=== PATIENT | male | born 1950 | race Caucasian/White ===

== ENCOUNTER → 2017-08-11 10:37 | Outpatient (CLI) | payer MEDICARE, SELFPAY ==
[2017-08-11 11:20] LABS: Bacteria 0 SEEN /hpf (None Seen); Mucous, Urine 0 SEEN /hpf (<or=2+); Red Blood Cells-Urine 0 SEEN /hpf (0-5); Squamous Epithelial Cells - UA 0 SEEN /hpf (0-5); White Blood Cells 0 SEEN /hpf (0-5)
[2017-08-11 11:30] LABS: Color, Urine Yellow (Yellow); Glucose, Dipstick Normal (Normal); Ketone-Dipstick Negative (Negative); Leukocyte Esterase-Dipstick Negative /ul (Negative); Nitrite-Dipstick Negative (Negative); Occult Blood-Urine Negative /ul (Negative); Protein-Dipstick Negative (Negative); Urine Bilirubin Dipstick Negative (Negative); Urine Clarity Clear (Clear); Urine Urobilinogen Normal (Normal)
[2017-08-11 11:32] LABS: Absolute Lymphocyte Count 1.61 X10^3/ul (0.83-4.51); Absolute Neutrophil Count 2.9 X10^3/uL (2.0-7.7); Basophil# 0.04 X10^3/uL; Basophil% 0.8 % (0-1); Eosinophil# 0.14 X10^3/uL; Eosinophils% 2.7 % (0-5); Hematocrit 35.7 % (40-54); Hemoglobin 10.8 g/dl (13.0-16.5); Lymphocyte # 1.61 X10^3/ul (4.0); Lymphocyte % 30.8 % (19-41); Mean Corp Hgb Conc 30.3 g/gl (32-36); Mean Corpuscular Volume 79.3 fL (80-94); Mean Platelet Vol. 10.3 fl (6.2-12.0); Monocyte# 0.54 X10^3/uL; Monocyte% 10.3 % (0-10); Neutrophil # 2.88 X10^3/uL (2.7-7.7); Neutrophil % 55.2 % (47-70); Platelet Count 292 K/mm3 (150-450); RBC Distribution Width CV 13.5 % (11.6-14.6); RBC Distribution Width SD 38.3 fl (35.1-43.9); White Blood Count 5.2 K/mm3 (4.4-11.0)
[2017-08-11 11:36] LABS: POSITIVE COUNT NO; POSITIVE DIFFERENTIAL NO; POSITIVE MORPHOLOGY NO
[2017-08-11 11:42] LABS: ALB/GLOB Ratio 1.1 RATIO (0.9-2.4); AST(SGOT) 22 U/L (15-37); Alanine Aminotransfer ALT/SGPT 25 U/L (16-61); Albumin, Serum 3.8 g/dL (3.2-5.0); Alkaline Phosphatase 68 U/L (45-117); Anion Gap 5 (5-15); BUN 15 mg/dL (7-18); BUN/Creat Ratio 17.8 RATIO (10-20); Calcium,Total 8.7 mg/dL (8.5-10.1); Chloride 107 mmol/L (98-107); Cholesterol 186 mg/dL (200); Creatinine, Serum 0.84 mg/dL (0.70-1.30); EST Glomerular Filtration Rate 97 mL/min (>60); Est Glom Filt Rate - Afr Amer 117 mL/min (>60); Globulin 3.6 g/dL (2.2-4.2); Glucose 91 mg/dL (74-106); High Density Lipoprotein 39 mg/dL; Iron 31 ug/dL (65-175); Iron Binding Capacity,Total 419 ug/dL (250-450); Potassium 3.9 mmol/L (3.5-5.1); Protein, Total 7.4 g/dL (6.4-8.2); Sodium Level 140 mmol/L (136-145); Triglycerides 136 mg/dL; Very Low Density Lipoprotein 27 mg/dL (5-40)
[2017-08-11 11:47] LABS: Vitamin B12 356 pg/mL (211-911)
[2017-08-11 11:53] LABS: Homocysteine 12.1 umol/L (3.2-10.7)
== END ==
PROVIDERS: Family Provider Family Medicine; PCP Family Medicine; Visit Provider Family Medicine
DX: D50.9 Iron deficiency anemia, unspecified (principal); E53.8 Deficiency of other specified B group vitamins; E72.11 Homocystinuria; I10 Essential (primary) hypertension
CPT/HCPCS: 80053; 80061; 81001; 82607; 83090; 83540; 83550; 85025

== ENCOUNTER 2017-09-13 11:23 | Emergency (ER) | payer MEDICARE, SELFPAY ==
[2017-09-13 11:24] VITALS: BP 206/106; PULSE 74; RESP 16; TEMP 36.6; O2SAT 98; BMI 26.9
--- NOTE | 2017-09-13 11:37 | EKG12_ITS ---
Test Reason : Blood Pressure : / mmHG Vent. Rate : 093 BPM Atrial Rate : 093 BPM P-R Int : 174 ms QRS Dur : 088 ms QT Int : 344 ms P-R-T Axes : 041 -02 039 degrees QTc Int : 427 ms Sinus rhythm with frequent and consecutive Premature ventricular complexes Abnormal ECG Confirmed by JESSICA RODRIGUEZ, JEANETTE ([id number]), industrial editor NORMAN WOLF ([id number]) on 09/15/2017 9:06:39 AM Referred By: SUSANA Confirmed By:JEANETTE LOPEZ MD
--- NOTE | 2017-09-13 11:40 | EKG12_ITS ---
Test Reason : Blood Pressure : / mmHG Vent. Rate : 104 BPM Atrial Rate : 104 BPM P-R Int : 176 ms QRS Dur : 084 ms QT Int : 338 ms P-R-T Axes : 030 -03 033 degrees QTc Int : 444 ms Sinus tachycardia with frequent and consecutive Premature ventricular complexes Abnormal ECG Confirmed by JESSICA RODRIGUEZ, JEANETTE ([id number]), rewrite editor NORMAN WOLF ([id number]) on 09/15/2017 9:06:53 AM Referred By: SUSANA Confirmed By:JEANETTE LOPEZ MD
[2017-09-13 12:09] LABS: Absolute Lymphocyte Count 1.76 X10^3/ul (0.83-4.51); Absolute Neutrophil Count 3.1 X10^3/uL (2.0-7.7); Basophil# 0.05 X10^3/uL; Basophil% 0.9 % (0-1); Eosinophil# 0.12 X10^3/uL; Eosinophils% 2.1 % (0-5); Hematocrit 39.7 % (40-54); Hemoglobin 12.7 g/dl (13.0-16.5); Lymphocyte # 1.76 X10^3/ul (4.0); Lymphocyte % 30.8 % (19-41); Mean Corpuscular Hgb 25.6 pg (27.0-32.0); Mean Platelet Vol. 10.3 fl (6.2-12.0); Monocyte# 0.71 X10^3/uL; Monocyte% 12.4 % (0-10); Neutrophil # 3.05 X10^3/uL (2.7-7.7); Neutrophil % 53.4 % (47-70); Platelet Count 236 K/mm3 (150-450); RBC Distribution Width CV 16.6 % (11.6-14.6); RBC Distribution Width SD 47.3 fl (35.1-43.9); Red Blood Count 4.96 M/mm3 (4.6-6.2); White Blood Count 5.7 K/mm3 (4.4-11.0)
--- NOTE | 2017-09-13 12:09 | RAD_ITS ---
STUDY: X-RAY CHEST REASON FOR EXAM: Male, 67 years old. Hypertension TECHNIQUE: 2 AP portable views COMPARISON: None. FINDINGS: EKG leads overlie the chest The lungs are clear and expanded. There is no demonstrated pleural abnormality. Normal size heart. Normal mediastinum and severiano. Normal visualized pulmonary arteries. Normal visualized aortic arch and descending thoracic aorta. Normal visualized thoracic spine. Normal visualized ribs, clavicles, and shoulders. There is no demonstrated abnormality of the visualized soft tissue structures of the upper abdomen. RAD/Chest 1 View (Portable) IMPRESSION: Normal x-ray examination of the chest. Electronically Signed: Flavio Wiggins MD at 12:27 EDT , Service support ,
[2017-09-13 12:21] LABS: POSITIVE COUNT NO; POSITIVE DIFFERENTIAL NO; POSITIVE MORPHOLOGY NO
[2017-09-13 12:24] LABS: Anion Gap 5 (5-15); BUN 20 mg/dL (7-18); BUN/Creat Ratio 21.1 RATIO (10-20); Chloride 108 mmol/L (98-107); Creatinine, Serum 0.95 mg/dL (0.70-1.30); EST Glomerular Filtration Rate 84 mL/min (>60); Est Glom Filt Rate - Afr Amer 102 mL/min (>60); Estimated Creatinine Clearance 77.91 ml/min; Glucose 94 mg/dL (74-106); Sodium Level 141 mmol/L (136-145)
[2017-09-13 12:50] VITALS: BP 170/98; PULSE 85; RESP 15; O2SAT 95
--- NOTE | 2017-09-13 12:52 | ED.DCSUM_ITS ---
- ER Visit Summary Date of Service: 09/13/17 Chief Complaint: [High blood pressure] History of Present Illness: The patient is a 67 M [presents to the emergency department complaint of high blood pressure that started this morning. Patient had a nosebleed last night that he had a hard time stopping so this morning he went to urgent care where they noticed his blood pressure was high. Patient denies chest pain or shortness of breath. Patient denies headache. Patient states that normally his blood pressure is in the 130 systolic. Patient is on Xarelto for history of DVT and he does have a history of hypertension.] Physical Examination: [HEENT-PERRLA, EOMI. Cranial nerves II through XII grossly intact. TMs clear. Mucous membranes moist. No adenopathy. Patient does have a small vessel on the right anterior septum that clotted with no active bleeding at this time. Cardiovascular-regular rate and rhythm without murmur. Patient has frequent ectopy noted. Lungs-clear to auscultation, chest wall stable without crepitus or subcu emphysema Abdomen-normoactive bowel sounds, soft, nontender, no rebound or rigidity, no peritoneal signs. Extremities-intact ?4, normal range of motion, normal pulses, atraumatic] Test Results: [EKG obtained on arrival showed normal sinus rhythm with bigeminy. Patient did have one run of V. tach 4 beats nonsustained and asymptomatic. CBC with differential unremarkable. Chemistries unremarkable. Troponin was less than 0.02.] Emergency Department Course and Treatment: Without treatment his blood pressure improved into the 160 systolic. [] Treatment Plan: [Patient case was just with Dr. Santhosh Collins was on for cardiology. I had concern about the patient's nonsustained V. tach. I was asked to place patient on a 24-hour Holter monitor and put patient on Toprol-XL as well as increase lisinopril to 40 mg daily. Patient to follow-up with Dr. Collins in the office.] Disposition: [Discharged home in stable condition] Impression: [Hypertension PVCs Nonsustained V. tach] This note was generated with [employer] dictation software. It may contain incorrect words, spelling, and punctuation that were not noted in review of the chart prior to signing ED Disposition - Plan for ED Patient: Chief Complaint: Hypertension Referrals: Chavez Martinez MD [Primary Care Provider] -
--- NOTE | 2017-09-13 12:52 | ED.DEP ---
ED Disposition - Plan for ED Patient: Chief Complaint: Hypertension Instructions: ED HTN Established, Premature Ventricular Contractions, ED Nosebleed Prescriptions: Lisinopril [Zestril] 40 mg PO DAILY #30 tab Metoprolol Succinate [Toprol Xl] 50 mg PO DAILY #30 tab.er.24h Referrals: Chavez Martinez MD [Primary Care Provider] - Santhosh Collins MD [STAFF PHYSICIAN] - 3-5 Days
[2017-09-13 13:14] VITALS: BP 159/101; PULSE 85; RESP 20; O2SAT 98
== END 2017-09-13 13:26 | disposition home or self-care (01) ==
LOC: ED 12:51
PROVIDERS: Emergency Provider Emergency Medicine; Family Provider Family Medicine; PCP Family Medicine
DX: I10 Essential (primary) hypertension (principal); I49.3 Ventricular premature depolarization; Z86.718 Personal history of other venous thrombosis and embolism
CPT/HCPCS: 71045; 80048; 84484; 85025; 93005; 99284

== ENCOUNTER → 2017-09-13 14:48 | Outpatient (CLI) | payer MEDICARE, SELFPAY | PROVIDERS: Family Provider Family Medicine; PCP Family Medicine; Visit Provider Emergency Medicine | DX: I49.3 Ventricular premature depolarization (principal) | CPT/HCPCS: 71045; 80048; 84484; 85025; 93005; 93225; 93226; 99284 ==

== ENCOUNTER → 2017-10-27 16:17 | Outpatient (CLI) | payer MEDICARE, SELFPAY ==
[2017-10-27 17:03] LABS: Magnesium 2.2 mg/dL (1.6-2.6)
== END ==
PROVIDERS: Family Provider Family Medicine; PCP Family Medicine; Visit Provider Internal Medicine Cardiovascular Disease
DX: I49.9 Cardiac arrhythmia, unspecified (principal); I10 Essential (primary) hypertension; R94.31 Abnormal electrocardiogram [ECG] [EKG]
CPT/HCPCS: 83735; 84443

== ENCOUNTER → 2017-11-23 15:32 | Outpatient (CLI) | payer MEDICARE, SELFPAY ==
[2017-11-23 15:45] LABS: Absolute Lymphocyte Count 1.33 X10^3/ul (0.83-4.51); Basophil# 0.07 X10^3/uL; Basophil% 1.4 % (0-1); Eosinophil# 0.12 X10^3/uL; Eosinophils% 2.4 % (0-5); Hematocrit 40.1 % (40-54); Lymphocyte # 1.33 X10^3/ul (4.0); Lymphocyte % 26.3 % (19-41); Mean Corp Hgb Conc 32.4 g/gl (32-36); Mean Corpuscular Hgb 26.8 pg (27.0-32.0); Mean Corpuscular Volume 82.7 fL (80-94); Mean Platelet Vol. 9.7 fl (6.2-12.0); Monocyte# 0.54 X10^3/uL; Monocyte% 10.7 % (0-10); Neutrophil # 2.98 X10^3/uL (2.7-7.7); Platelet Count 245 K/mm3 (150-450); Red Blood Count 4.85 M/mm3 (4.6-6.2); White Blood Count 5.1 K/mm3 (4.4-11.0)
[2017-11-23 15:48] LABS: POSITIVE COUNT NO; POSITIVE DIFFERENTIAL NO; POSITIVE MORPHOLOGY NO
[2017-11-23 15:58] LABS: International Normalized Ratio 1.1; Prothrombin Time (Protime)PT. 14.4 SECONDS (11.7-14.9)
[2017-11-23 16:14] LABS: Anion Gap 9 (5-15); BUN 17 mg/dL (7-18); BUN/Creat Ratio 19.8 RATIO (10-20); Calcium,Total 8.6 mg/dL (8.5-10.1); Chloride 107 mmol/L (98-107); Creatinine, Serum 0.86 mg/dL (0.70-1.30); EST Glomerular Filtration Rate 94 mL/min (>60); Est Glom Filt Rate - Afr Amer 114 mL/min (>60); Glucose 101 mg/dL (74-106); Iron 56 ug/dL (65-175); Iron Binding Capacity,Total 366 ug/dL (250-450); Potassium 3.7 mmol/L (3.5-5.1); Sodium Level 143 mmol/L (136-145)
[2017-11-24 08:28] LABS: Vitamin B12 320 pg/mL (211-911)
== END ==
PROVIDERS: Visit Provider Internal Medicine Cardiovascular Disease
DX: I25.10 Atherosclerotic heart disease of native coronary artery without angina pectoris (principal); I49.9 Cardiac arrhythmia, unspecified; D50.9 Iron deficiency anemia, unspecified; E53.8 Deficiency of other specified B group vitamins
CPT/HCPCS: 80048; 82607; 83540; 83550; 85025; 85610

== ENCOUNTER → 2017-12-27 07:35 | Outpatient (CLI) | payer MEDICARE, SELFPAY ==
[2017-12-27 07:54] LABS: Hematocrit 35.7 % (40-54); Hemoglobin 11.2 g/dl (13.0-16.5); Mean Corp Hgb Conc 31.4 g/gl (32-36); Mean Corpuscular Hgb 26.3 pg (27.0-32.0); Mean Corpuscular Volume 83.8 fL (80-94); Mean Platelet Vol. 9.2 fl (6.2-12.0); Platelet Count 261 K/mm3 (150-450); RBC Distribution Width CV 13.6 % (11.6-14.6); RBC Distribution Width SD 40.7 fl (35.1-43.9); Red Blood Count 4.26 M/mm3 (4.6-6.2); Scan Indicated on CBC? Y/N NO; White Blood Count 5.7 K/mm3 (4.4-11.0)
[2017-12-27 08:20] LABS: Anion Gap 12 (5-15); BUN 16 mg/dL (7-18); Calcium,Total 8.8 mg/dL (8.5-10.1); Chloride 105 mmol/L (98-107); Cholesterol 106 mg/dL (200); Creatinine, Serum 0.84 mg/dL (0.70-1.30); EST Glomerular Filtration Rate 96 mL/min (>60); Est Glom Filt Rate - Afr Amer 117 mL/min (>60); Glucose 104 mg/dL (74-106); High Density Lipoprotein 42 mg/dL; Potassium 4.1 mmol/L (3.5-5.1); Sodium Level 143 mmol/L (136-145); Triglycerides 107 mg/dL; Very Low Density Lipoprotein 21 mg/dL (5-40)
== END ==
PROVIDERS: Family Provider Family Medicine; PCP Family Medicine
DX: I25.10 Atherosclerotic heart disease of native coronary artery without angina pectoris (principal)
CPT/HCPCS: 36415; 80048; 80061; 85027

== ENCOUNTER → 2018-02-17 11:01 | Outpatient (CLI) | payer MEDICARE, SELFPAY ==
[2018-02-17 11:31] LABS: Absolute Lymphocyte Count 1.57 X10^3/ul (0.83-4.51); Basophil% 1.3 % (0-1); Eosinophil# 0.46 X10^3/uL; Eosinophils% 5.8 % (0-5); Hematocrit 38.6 % (40-54); Lymphocyte # 1.57 X10^3/ul (4.0); Lymphocyte % 19.7 % (19-41); Mean Corp Hgb Conc 31.1 g/gl (32-36); Mean Corpuscular Hgb 25.9 pg (27.0-32.0); Mean Corpuscular Volume 83.4 fL (80-94); Mean Platelet Vol. 10.4 fl (6.2-12.0); Monocyte# 0.83 X10^3/uL; Monocyte% 10.4 % (0-10); Neutrophil # 4.96 X10^3/uL (2.7-7.7); Neutrophil % 62.3 % (47-70); Platelet Count 319 K/mm3 (150-450); RBC Distribution Width CV 13.4 % (11.6-14.6); RBC Distribution Width SD 40.2 fl (35.1-43.9); Red Blood Count 4.63 M/mm3 (4.6-6.2)
[2018-02-17 11:33] LABS: POSITIVE COUNT NO; POSITIVE DIFFERENTIAL NO; POSITIVE MORPHOLOGY NO
[2018-02-17 11:39] LABS: Cholesterol 101 mg/dL (200); High Density Lipoprotein 34 mg/dL; Iron 43 ug/dL (65-175); Iron Binding Capacity,Total 317 ug/dL (250-450); PSA,Total- Diagnostic 2.62 ng/mL (0.0-4.0); Triglycerides 103 mg/dL; Very Low Density Lipoprotein 21 mg/dL (5-40)
== END ==
PROVIDERS: Family Provider Family Medicine; PCP Family Medicine; Referring Provider Family Medicine; Visit Provider Family Medicine
DX: D50.9 Iron deficiency anemia, unspecified (principal); N42.9 Disorder of prostate, unspecified; I10 Essential (primary) hypertension; E72.11 Homocystinuria
CPT/HCPCS: 80061; 83540; 83550; 84153; 85025

== ENCOUNTER → 2018-02-24 07:56 | Outpatient (CLI) | payer MEDICARE, SELFPAY ==
--- NOTE | 2018-02-24 08:10 | PCM.CR.ITP ---
General Information - General Information Admitting Diagnosis: PCI with stent 12/22/17 - Education/Goals Barriers to Learning: None Individual Counseling: Initial Assessment: Abnormal Cholesterol Levels, High Blood Pressure, Overweight/Obesity, Hypertension, Stress, Family History of Heart Disease (under 65 years) - mom and dad Cardiac Rehabilitation Goals: 1. Maintain the individual as the primary focus of care. 2. To improve the patient's quality of life. 3. Identification of cardiac risk factors and provide cardiac risk factor management. 4. Enhance the psychosocial status of the patient. 5. Reconditioning enough to allow the patient to resume customary activities. 6. Control symptoms of cardiac disease Scale for measuring improvement of personal goals: Enter appropriate number in Comments. 2 = Unchanged. 3 = Slightly Better. 4 = Moderate Improvement. 5 = Met my Goal Personal Goals: Initial Assessment: Improve management of stress and emotions, Improve energy level, Participate in home exercise program, Get back to work, or to resume activities faster, Improve muscle strength and endurance, Improve diet and eating habits (eat healthier), Control risk factors (learn risk factor modification) Exercise - Initial Assessment - Visit Date of Eval: 02/24/18 - Stages of Change Stages of Change:: Action - Exercise Prescription Mode:: Treadmill, Biodyne, Rower, Airdyne, NuStep - Hypertension Do any of the following apply?: Yes Resting Blood Pressure:: 140/72 - Intervention Home Exercise/Activity Goal:: Moderate Exercise 30 min/day x 5 days/wk - Education Goals:: Warm-up, RPE MANPREET Scale, S/S, Safe Exercise, Self-Monitoring Nutrition - Initial Assessment - Program Goals Nutrition Program Goals: LDL <70. Total Cholesterol <200. HDL >45. Triglycerides <150. HgbA1C <7%. BMI <25 - Visit Date of Assessment:: 02/24/18 - Stages of Change Stages of Change:: Action - Diabetes Diabetes:: No - Weight Management Height: 1.78 m Weight:: 81.647 kg Weight Goal (kg):: 79.379 kg Body Fat %:: 25 - Intervention Referral to dietitian:: No Referral to Diabetic Clinic:: No Will attend diet classes:: Yes - Education Gave educational materials for:: Healthy eating Tobacco - Initial Assessment - Program Goals Tobacco Program Goals: Complete smoking cessation. Attend education classes. Improve Knowledge Test score - Stage of Change Stages of Change:: Maintenance - Learning Barriers Learning Barriers: Ready to Learn Total Score:: 14 - Family Support Do you have family support?: Yes - Tobacco Use Tobacco Use: Non-smoker Do you use smokeless tobacco?: No - Intervention Smoking Cessation Referral:: No Individual Education/Counseling:: No Education Schedule Given:: Yes - Education Gave educational material for:: Coronary artery disease, Risk factors, Sexuality, Medical compliance, Cardiac A&P, Angina signs & symptoms Psychosocial - Initial Assess - Target Goals Target Goals: Assess presence or absence of depression. Using a valid screening tool, maximizes coping skills. Positive support system - Stages of Change Stages of Change:: Action - Psychosocial Test Tool Used:: HANDS Depression Questionnaire Self-reported stress:: yes, daughter and grandchild living with he and . Total Mood Screening Score:: 4 Self-Efficacy Score:: 9 - Intervention PS - Interventions: Yes Attend Stress Management Classes, Yes Uses Stress Management Skills, No Referral to Mental Health, No Referral to [facility] Case Management, No Referral to Physician - Education Gave educational materials for:: Coping techniques, Signs & symptoms of depression, Stress management, Relaxation techniques - Patient/Program Goal Preventative Medication(s):: Aspirin, CRISTOBAL inhibitor, Clopidogrel, Beta emile, Statin/lipid - Assistive Devices Assistive Devices:: None Fall Risk Assessed:: Yes Patient Health Questionnaire Initial Assessment 1. Little interest or pleasure in doing things: Several days 2. Feeling down, depressed, or hopeless: Not at all 3. Trouble falling or staying asleep, or sleeping too much: Not at all 4. Feeling tired or having little energy: Several days 5. Poor appetite or overeating: Several days 6. Feeling bad about yourself -- or that you are a failure or have let yourself or your family down: Several days 7. Trouble concentrating on things, such as reading the newspaper or watching television: Not at all 8. Moving or speaking so slowly that other people could have noticed. Or the opposite - being so fidgety or restless that you have been moving around a lot more than usual: Not at all 9. Thoughts that you would be better off , or of hurting yourself in some way: Not at all How difficult have these problems made it for you to do your work, take care of things at home, or get along with other people?: Not difficult at all Total Score: 4 TITO-Q SV Test - Statements CAD is a disease of the arteries in the heart: False Examples of risk factors for heart disease: True Angina is chest pain or discomfort: True The benefits of resistance training include: True Eating more meat and dairy products: False Anti-platelet medications such as aspirin are important: I Don't Know The only effective way to manage stress: False An exercise warm-up slowly increases heart rate: True Prepared, processed foods usually have high sodium: True Depression is common after a heart attack: I Don't Know The statin medications lower cholesterol: True To control blood pressure, lower the amount of sodium: True If someone gets chest discomfort during walking: False Transfats are partially hydrogenated vegetable oils: I Don't Know Sleep apnea that is not treated increases the risk: I Don't Know To control cholesterol, one should become a vegetarian: False Someone knows if he/she is exercising at the right level: True Diabetes cannot be prevented with exercise & health eating: I Don't Know Stress is a large risk for heart attack: I Don't Know A diet that can help lower blood pressure is rich in: True - Total Score Total Correct Responses: 14 Self-Efficacy Initial Assessment We would like to know how confident you are in doing certain activities. Please select your confidence level for:: Select your confidence level for the following using the scale 1-10 where 1 is not at all confident and 10 is totally confident. Your score is the average of all 6 responses. Fatigue: How confident are you that you can keep the fatigue caused by your disease from interfering with the things you want to do? Select Number: 8 Physical Discomfort or Pain: How confident are you that you can keep the physical discomfort or pain of your disease from interfering with the things you want to do? Select Number: 10 Emotional Distress: How confident are you that you can keep the emotional distress caused by your disease from interfering with the things you want to do? Select Number: 9 Other Symptoms or Health Problems: How confident are you that you can keep other symptoms or health problems from interfering with the things you want to do? Select Number: 8 Different Tasks and Activities: How confident are you that you can do the different tasks and activities needed to manage your health condition so as to reduce your need to see a doctor? Select Number: 10 Medication: How confident are you that you can do things other than just taking medication to reduce how much your illness affects your everyday life? Select Number: 10 Total Score:: 9 Nutrition Survey - Nutrition Survey Instructions Scoring Instructions: Scoring is as follows: Yes = 1 points. No = 0 point. Patient score that is >/=12 is considered to be at potential nutritional risk and could benefit from a referral to a registered dietitian. - Nutrition Survey Initial Have you lost >10 lbs over the past 2 months without trying?: No Are you following a special diet at home for diabetes, low fat, or low salt?: No Are you interested in meeting with a dietitian for help understanding your diet?: No Do you eat less than 3 meals a day?: No Do you eat fatty meats (benavides, sausage, ribs, etc), fried foods, desserts, large amounts of salad dressings, margarine, butter, or cheese most days?: No Do you have food allergies? [Enter types in comment field]: No Do you eat in restaurants more than 3 times a week?: No Do you season food with salt, seasoning salt, or garlic salt?: No Do you used canned, boxed, frozen meals, or soups, seasoning packets?: Yes Total Score:: 1
--- NOTE | 2018-02-24 08:25 | CR.HP_ITS ---
CR - History & Physical - General Arrival date:: 02/24/18 Arrival time:: 08:10 Date of Referral:: 02/24/18 Date of CR Evaluation:: 02/24/18 Referring Physician: Dr. Dangelo Hurtado Primary Diagnosis: PCI with Stent - History of Present Cardiac Event Onset Date: Enter Onset Date of cardiac illnesses in Comment field below Current stable Angina Pectoris:: No Acute Myocardial Infarction within 12 months:: No Coronary Artery Bypass Graft:: No Heart valve replacement or repair:: No PTCA or coronary stenting:: Yes - 12/22/17 Heart or Heart-Lung Transplant:: No Heart Failure EF <35%:: No Type of Symptoms:: bloody nose, also fatigue. Interventions with present event:: stress test, PCI Were there any complications?: Had pvc's pre stent. - Medications Home Medications: Ambulatory Orders Medication Instructions Recorded Lisinopril [Zestril] 40 mg PO DAILY #30 tab 09/13/17 Cholecalciferol (Vitamin D3) 2,000 unit PO DAILY 02/24/18 [Vitamin D3] Clopidogrel Bisulfate [Plavix] 75 mg PO DAILY 02/24/18 Cyanocobalamin [Vitamin B12] 1,000 mcg PO DAILY@0800 02/24/18 Dorzolamide HCL/Timolol [Cosopt 1 drop EACH EYE BID 02/24/18 Opth Drops] Ferrous Sulfate 325 mg PO DAILY@0800 02/24/18 Meclizine HCl [Travel Sickness] 25 mg PO PRN PRN 02/24/18 Metronidazole [Metrogel] 60 gm TP PRN PRN 02/24/18 Nitroglycerin [Nitrolingual [place]] 0.4 mg SUBLINGUAL PRN PRN 02/24/18 Pantoprazole Sodium [Protonix] 40 mg PO DAILY 02/24/18 Rivaroxaban [Xarelto] 10 mg PO DAILY 02/24/18 Tadalafil [Cialis] 5 mg PO PRN PRN 02/24/18 Verapamil HCl [Verapamil ER] 120 mg PO DAILY 02/24/18 Vitamin B Complex [Balanced B-50] 1 each PO DAILY 02/24/18 - Allergies Allergies/Adverse Reactions: Allergies tetracycline Adverse Reaction (Mild, Verified 02/24/18 08:34) Nausea/Vom/Diarrhea - Sleep Disorder Evaluation Hx of Sleep Apnea: No Do you snore loudly (louder than talking or can be heard through closed doors)?: Yes Do you often feel tired/ fatigued/ sleepy during daytime?: Yes Has anyone observed you stop breathing during sleep?: No History of Hypertension (for STOP score): Yes STOP Results: Positive Advanced Directives - Advanced Directives 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 Social History - Smoking History Smoking Status: Never smoker Hx Tobacco Use: No Hx Smoking Exposure: No - Alcohol Use Alcohol Usage: Yes - 3 beers on Wednesday nights. 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 - Hobbies, Recreation, Social Activities Hobbies: Reading, Walking, Other - listen to music Recreational Activities: I am able to engage in all my recreational activities Social Environment - Status Marital Status: - Current Living Arrangements Living Environment:: Family, Spouse - Children How many children do you have?: 4 Do any of your children live nearby?: Yes - Safety Do you feel safe in your surroundings?: Yes - Assistance Do you need any assistance at home?: no Review of Systems - Review of Systems Hints: Right click = Denies (Slash). Left click = Reports (Yocha Dehe) Review of Present Symptoms: Reports: PVD - DVT x 2 history, had leg valve surgery in 90's, Dizziness/Lightheadedness - upon arising occas, Fatigue - improving, Appetite - Normal, Appetite - Special Diet - cardiac, Sleep - Normal. Denies: Shortness of Breath at Rest, Shortness of Breath with Exertion, Operative Discomfort, Angina, Wound Healing, Heart Arrhythmia/Irregularities, Sexual Changes - Pain Is Patient Pain Free?: No Pain Location: back, lower extremity Pain Level: 3/10 Previous experience dealing with pain?: positional changes Risk Factor Assessment - Chief Complaint Chief Complaint: Cardiac rehab post pci and stent. - Hypertension Blood Pressure Sitting - Right Arm: 110/70 Blood Pressure Sitting - Left Arm: 142/72 - Stress Stress: Home/Family - with daughter and grandchild - Diabetes Nutrition Referral for Diabetes: No - Obesity Height: 1.78 m Weight:: 81.647 kg Weight in Pounds: 180.0 lbs Weight Source: Stated by Patient Body Mass Index (BMI): 25.8 Desired Body Weight: 175 Realistic Weight Goal (Loss of 1-2 lbs/week): 175 Nutritional Referral for Obesity: No - Physical Inactivity Physical Inactivity: Reg Exercise 30 min/day - Risk Stratification Risk Guidelines: Lowest Risk: Risk Factor for Smoking, Risk Factor for Diabetes, Risk Factor for Sedentary Lifestyle, Moderate Risk: Risk Factor for Dyslipidem ia, Risk Factor for Obesity, Risk Factor for Hypertension, Risk Factor for Depression - For Smoking Smoking Risk Guidelines: Smoking Low Risk: None or quit greater than 6 months ago. Smoking Moderate Risk: Smoker or quit 6 months or less ago. Smoking High Risk: Smoker - For Dyslipidemia Dyslipidemia Risk Guidelines: Low Risk: Moderate Risk: High Risk: 15-25% fat 25.1-29% fat >/= 30% fat. <7% sat fat 7-9% sat fat >9% sat fat. <150 mg chol 150-299 mg chol >/= 300 mg chol. LDL <100 LDL 100-129 LDL >/= 130. Chol/HDL ratio <5.0 Chol/HDL ratio 5.0-6.0 Chol/HDL ratio >6.0. Triglycerides <100 Triglycerides 100-149 Triglycerides >/= 150 - For Diabetes Mellitus Diabetes Risk Guidelines: Diabetes Low Risk: HgA1c <6.5% and/or FBG <120. Diabetes Moderate Risk: HgA1c 6.6-7.9% and/or FBG 120-180. Diab etes High Risk: HgA1c >/= 8% and/or FBG >180 - For Obesity/Overweight Obesity/Overweight Risk Guidelines: Obesity Low Risk: BMI <25.0. Obesity Moderate Risk: BMI 25-29.9. Obesity High Risk: BMI >/= 30.0 - For Hypertension Hypertension Risk Guidelines: Hypertension Low Risk: Systolic <120 and Diastolic <80. Hypertension Moderate Risk: Systolic 120-139 and Diastolic 80-89. Hypertension High Risk: Systolic >/= 140 and Diastolic >/= 90 - For Sedentary Lifestyle Sedentary Lifestyle Risk Guidelines: Sedentary Lifestyle Low Risk: >/= 1,500 kcal/week. Sedentary Lifestyle Moderate Risk: 700-1,499 kcal/week. Sedentary Lifestyle High Risk: < 700 kcal/week - For Depression Depression Risk Guidelines: Depression Low Risk: Not clinically depressed. Depression Moderate Risk: Mildly depressed. Depression High Risk: Clinically depressed Motivation - Motivation to Participate On a scale of 1 to 10, how prepared are you to commit to attending program?: 9
[2018-02-24 09:39] VITALS: BP 110/70; BP 142/72; BMI 25.8
[2018-02-24 09:45] VITALS: BP 140/72
== END ==
PROVIDERS: Family Provider Family Medicine; PCP Family Medicine; Referring Provider Internal Medicine Cardiovascular Disease; Visit Provider Internal Medicine Cardiovascular Disease
DX: I47.2 Ventricular tachycardia (principal); I10 Essential (primary) hypertension; Z95.5 Presence of coronary angioplasty implant and graft; Z79.899 Other long term (current) drug therapy

== ENCOUNTER 2018-03-16 09:15 | Outpatient (RCR) | payer MEDICARE, SELFPAY | END 2018-03-16 23:59 | LOC: CR 09:15 | PROVIDERS: Family Provider Family Medicine; PCP Family Medicine; Referring Provider Internal Medicine Cardiovascular Disease; Visit Provider Internal Medicine Cardiovascular Disease | DX: Z95.5 Presence of coronary angioplasty implant and graft (principal) | CPT/HCPCS: 93798 ==

== ENCOUNTER 2018-04-15 09:15 | Outpatient (RCR) | payer MEDICARE, SELFPAY ==
--- NOTE | 2018-03-29 07:29 | PCM.CR.ITP ---
Exercise - 30-day Assessment - Visit Date of Eval: 03/27/18 Session #:: 13 - Stages of Change Stages of Change:: Action - Exercise Prescription Mode:: Treadmill, Rower, Airdyne, NuStep Frequency (x/week): 3 Duration:: 35 METs - Progression: 0.5-1 MET as tolerated: 5.5 Target Heart Rate:: 114-122 with max HR 131 - Hypertension Resting Blood Pressure:: 80/56 Peak Exercise Blood Pressure:: 178/82 Medication Changes:: No - Intervention Home Exercise/Activity Goal:: Moderate Exercise 30 min/day x 5 days/wk - Education Goals:: Warm-up, RPE MANPREET Scale, S/S, Safe Exercise, Self-Monitoring - Exercise Program Goals Exercise Program Goals: Aerobic Activity >30 min Nutrition - 30-Day Assessment - Program Goals Nutrition Program Goals: LDL <70. Total Cholesterol <200. HDL >45. Triglycerides <150. HgbA1C <7%. BMI <25 - Visit Date of Eval: 03/28/18 - Stages of Change Stages of Change:: Action - Lipids Has the patient seen the dietitian?: No - Diabetes Diabetes:: No - Weight Management Weight:: 177 lb - Intervention Will attend diet classes:: Yes - Education Attended class for:: Healthy eating Tobacco - Initial Assessment - Program Goals Tobacco Program Goals: Complete smoking cessation. Attend education classes. Improve Knowledge Test score - Learning Barriers Learning Barriers: Ready to Learn Tobacco - 30-Day Assessment - Program Goals Tobacco Program Goals: Complete smoking cessation. Attend education classes. Improve Knowledge Test score - Stage of Change Stages of Change:: Action - Learning Barriers Learning Barriers: Participates in education - Family Support Do you have family support?: Yes - Tobacco Use Tobacco Use: Non-smoker Do you use smokeless tobacco?: No - Intervention Education Schedule Given:: Yes - Education Attended class for:: Coronary artery disease, Risk factors, Sexuality, Medical compliance, Cardiac A&P, Angina signs & symptoms Psychosocial - Initial Assess - Target Goals Target Goals: Assess presence or absence of depression. Using a valid screening tool, maximizes coping skills. Positive support system - Psychosocial Test Tool Used:: HANDS Depression Questionnaire - Assistive Devices Fall Risk Assessed:: Yes Psychosocial - 30-Day Assess - Target Goals Target Goals: Assess presence or absence of depression. Using a valid screening tool, maximizes coping skills. Positive support system - Stages of Change Stages of Change:: Action - Psychosocial Test Tool Used:: HANDS Depression Questionnaire - Intervention PS - Interventions: Yes Attend Stress Management Classes, Yes Uses Stress Management Skills, No Referral to Mental Health, No Referral to [facility] Case Management, No Referral to Physician - Education Attended classes for:: Coping techniques, Signs & symptoms of depression, Stress management, Relaxation techniques - Patient/Program Goal Preventative Medication(s):: Aspirin, Clopidogrel, Beta emile, Statin/lipid - Assistive Devices Assistive Devices:: None Fall Risk Assessed:: Yes Patient Health Questionnaire 30-Day Re-eval Assessment 1. Little interest or pleasure in doing things: Not at all 2. Feeling down, depressed, or hopeless: Not at all 3. Trouble falling or staying asleep, or sleeping too much: Not at all 4. Feeling tired or having little energy: Not at all 5. Poor appetite or overeating: Not at all 6. Feeling bad about yourself -- or that you are a failure or have let yourself or your family down: Not at all 7. Trouble concentrating on things, such as reading the newspaper or watching television: Not at all 8. Moving or speaking so slowly that other people could have noticed. Or the opposite - being so fidgety or restless that you have been moving around a lot more than usual: Not at all 9. Thoughts that you would be better off , or of hurting yourself in some way: Not at all How difficult have these problems made it for you to do your work, take care of things at home, or get along with other people?: Not difficult at all Total Score: 0 Self-Efficacy 30-Day Re-eval Assessment We would like to know how confident you are in doing certain activities. Please select your confidence level for:: Select your confidence level for the following using the scale 1-10 where 1 is not at all confident and 10 is totally confident. Your score is the average of all 6 responses. Fatigue: How confident are you that you can keep the fatigue caused by your disease from interfering with the things you want to do? Select Number: 9 Physical Discomfort or Pain: How confident are you that you can keep the physical discomfort or pain of your disease from interfering with the things you want to do? Select Number: 10 Emotional Distress: How confident are you that you can keep the emotional distress caused by your disease from interfering with the things you want to do? Select Number: 10 Other Symptoms or Health Problems: How confident are you that you can keep other symptoms or health problems from interfering with the things you want to do? Select Number: 9 Different Tasks and Activities: How confident are you that you can do the different tasks and activities needed to manage your health condition so as to reduce your need to see a doctor? Select Number: 10 Medication: How confident are you that you can do things other than just taking medication to reduce how much your illness affects your everyday life? Select Number: 10 Total Score:: 9
[2018-03-29 07:32] VITALS: BP 178/82; BP 80/56
== END 2018-04-15 23:59 ==
LOC: CR 09:15
PROVIDERS: Family Provider Family Medicine; PCP Family Medicine; Referring Provider Internal Medicine Cardiovascular Disease; Visit Provider Internal Medicine Cardiovascular Disease
DX: I25.10 Atherosclerotic heart disease of native coronary artery without angina pectoris (principal); I10 Essential (primary) hypertension; Z95.5 Presence of coronary angioplasty implant and graft
CPT/HCPCS: 93798

== ENCOUNTER 2018-05-16 09:15 | Outpatient (RCR) | payer MEDICARE, SELFPAY ==
[2018-02-24 09:39] VITALS: BMI 25.8
[2018-04-16 01:37] VITALS: BP 178/82; BP 80/56
--- NOTE | 2018-04-26 06:39 | CR.ITP_ITS ---
Exercise - 60-Day Assessment - Visit Date of Eval: 04/26/18 Session #:: 21 - Stages of Change Stages of Change:: Action - Exercise Prescription Mode:: Treadmill, Airdyne, NuStep Frequency (x/week): 3 Duration:: 30-45 METs: 6.6 Target Heart Rate:: 131-139 mx HR 130 - Hypertension Resting Blood Pressure:: 84/60 Peak Exercise Blood Pressure:: 138/84 Medication Changes:: No - Intervention Home Exercise/Activity Goal:: Moderate Exercise 30 min/day x 5 days/wk - Education Goals:: Warm-up, RPE MANPREET Scale, S/S, Safe Exercise, Self-Monitoring - Exercise Program Goals Exercise Program Goals: Aerobic Activity >30 min Nutrition - 60-Day Assessment - Program Goals Nutrition Program Goals: LDL <70. Total Cholesterol <200. HDL >45. Triglycerides <150. HgbA1C <7%. BMI <25 - Visit Date of Eval: 04/26/18 - Stages of Change Stages of Change:: Action - Lipids Has the patient seen the dietitian?: No - Diabetes Diabetes:: No - Weight Management Weight:: 203 lb - down 2 pounds this 30-days - Intervention Referral to dietitian:: No Referral to Diabetic Clinic:: No Will attend diet classes:: Yes - Education Attended class for:: Healthy eating Tobacco - Initial Assessment - Program Goals Tobacco Program Goals: Complete smoking cessation. Attend education classes. Improve Knowledge Test score - Learning Barriers Learning Barriers: Ready to Learn Tobacco - 60-Day Assessment - Program Goals Tobacco Program Goals: Complete smoking cessation. Attend education classes. Improve Knowledge Test score - Stage of Change Stages of Change:: Action - Learning Barriers Learning Barriers: Participates in education - Family Support Do you have family support?: Yes - Tobacco Use Tobacco Use: Non-smoker Do you use smokeless tobacco?: No - Intervention Smoking Cessation Referral:: No Education Schedule Given:: Yes - Education Attended class for:: Coronary artery disease, Risk factors, Sexuality, Medical compliance, Cardiac A&P, Angina signs & symptoms Psychosocial - 60-Day Assess - Target Goals Target Goals: Assess presence or absence of depression. Using a valid screening tool, maximizes coping skills. Positive support system - Stages of Change Stages of Change:: Action - Psychosocial Test Tool Used:: HANDS Depression Questionnaire - Intervention PS - Interventions: Yes Attend Stress Management Classes, Yes Uses Stress Management Skills, No Referral to Mental Health, No Referral to [facility] Case Management, No Referral to Physician - Education Attended classes for:: Coping techniques, Signs & symptoms of depression, Stress management, Relaxation techniques - Patient/Program Goal Preventative Medication(s):: Aspirin, Clopidogrel, Beta emile, Statin/lipid - Assistive Devices Assistive Devices:: None Fall Risk Assessed:: Yes Patient Health Questionnaire 60-Day Re-eval Assessment 1. Little interest or pleasure in doing things: Not at all 2. Feeling down, depressed, or hopeless: Not at all 3. Trouble falling or staying asleep, or sleeping too much: Not at all 4. Feeling tired or having little energy: Not at all 5. Poor appetite or overeating: Not at all 6. Feeling bad about yourself -- or that you are a failure or have let yourself or your family down: Not at all 7. Trouble concentrating on things, such as reading the newspaper or watching television: Not at all 8. Moving or speaking so slowly that other people could have noticed. Or the opposite - being so fidgety or restless that you have been moving around a lot more than usual: Not at all 9. Thoughts that you would be better off , or of hurting yourself in some way: Not at all Total Score: 0 Self-Efficacy 60-Day Re-eval Assessment We would like to know how confident you are in doing certain activities. Please select your confidence level for:: Select your confidence level for the following using the scale 1-10 where 1 is not at all confident and 10 is totally confident. Your score is the average of all 6 responses. Fatigue: How confident are you that you can keep the fatigue caused by your disease from interfering with the things you want to do? Select Number: 10 Physical Discomfort or Pain: How confident are you that you can keep the physical discomfort or pain of your disease from interfering with the things you want to do? Select Number: 10 Emotional Distress: How confident are you that you can keep the emotional distress caused by your disease from interfering with the things you want to do? Select Number: 10 Other Symptoms or Health Problems: How confident are you that you can keep other symptoms or health problems from interfering with the things you want to do? Select Number: 10 Different Tasks and Activities: How confident are you that you can do the different tasks and activities needed to manage your health condition so as to reduce your need to see a doctor? Select Number: 10 Medication: How confident are you that you can do things other than just taking medication to reduce how much your illness affects your everyday life? Select Number: 10 Total Score:: 10
--- NOTE | 2018-04-26 06:45 | PCM.CR.ITP ---
Exercise - 60-Day Assessment - Visit Date of Eval: 04/26/18 Session #:: 25 - Stages of Change Stages of Change:: Action - Exercise Prescription Mode:: Treadmill, Airdyne, NuStep Frequency (x/week): 3 Duration:: 30-45 METs: 6 Target Heart Rate:: 122-130 w max HR 133 - Hypertension Resting Blood Pressure:: 108/52 Peak Exercise Blood Pressure:: 184/78 Medication Changes:: No - Intervention Home Exercise/Activity Goal:: Moderate Exercise 30 min/day x 5 days/wk - Education Goals:: Warm-up, RPE MANPREET Scale, S/S, Safe Exercise, Self-Monitoring - Exercise Program Goals Exercise Program Goals: Aerobic Activity >30 min Nutrition - 60-Day Assessment - Program Goals Nutrition Program Goals: LDL <70. Total Cholesterol <200. HDL >45. Triglycerides <150. HgbA1C <7%. BMI <25 - Visit Date of Eval: 04/26/18 - Stages of Change Stages of Change:: Action - Lipids Has the patient seen the dietitian?: No - Diabetes Diabetes:: No - Weight Management Weight:: 178 lb 8 oz - up 1.5 pounds - Intervention Referral to dietitian:: No Will attend diet classes:: Yes - Education Attended class for:: Healthy eating Tobacco - Initial Assessment - Program Goals Tobacco Program Goals: Complete smoking cessation. Attend education classes. Improve Knowledge Test score - Learning Barriers Learning Barriers: Ready to Learn Tobacco - 60-Day Assessment - Program Goals Tobacco Program Goals: Complete smoking cessation. Attend education classes. Improve Knowledge Test score - Stage of Change Stages of Change:: Action - Learning Barriers Learning Barriers: Participates in education - Family Support Do you have family support?: Yes - Tobacco Use Tobacco Use: Non-smoker Do you use smokeless tobacco?: No - Intervention Education Schedule Given:: Yes - Education Attended class for:: Coronary artery disease, Risk factors, Sexuality, Medical compliance, Cardiac A&P, Angina signs & symptoms Psychosocial - Initial Assess - Target Goals Target Goals: Assess presence or absence of depression. Using a valid screening tool, maximizes coping skills. Positive support system - Psychosocial Test Tool Used:: HANDS Depression Questionnaire - Assistive Devices Fall Risk Assessed:: Yes Psychosocial - 60-Day Assess - Target Goals Target Goals: Assess presence or absence of depression. Using a valid screening tool, maximizes coping skills. Positive support system - Stages of Change Stages of Change:: Action - Psychosocial Test Tool Used:: HANDS Depression Questionnaire - Intervention PS - Interventions: Yes Attend Stress Management Classes, Yes Uses Stress Management Skills, No Referral to Mental Health, No Referral to [facility] Case Management, No Referral to Physician - Education Attended classes for:: Coping techniques, Signs & symptoms of depression, Stress management, Relaxation techniques - Patient/Program Goal Preventative Medication(s):: Aspirin, Clopidogrel, Beta emile, Statin/lipid - Assistive Devices Assistive Devices:: None Patient Health Questionnaire 60-Day Re-eval Assessment 1. Little interest or pleasure in doing things: Not at all 2. Feeling down, depressed, or hopeless: Not at all 3. Trouble falling or staying asleep, or sleeping too much: Several days 4. Feeling tired or having little energy: Not at all 5. Poor appetite or overeating: Not at all 6. Feeling bad about yourself -- or that you are a failure or have let yourself or your family down: Not at all 7. Trouble concentrating on things, such as reading the newspaper or watching television: Not at all 8. Moving or speaking so slowly that other people could have noticed. Or the opposite - being so fidgety or restless that you have been moving around a lot more than usual: Not at all 9. Thoughts that you would be better off , or of hurting yourself in some way: Not at all How difficult have these problems made it for you to do your work, take care of things at home, or get along with other people?: Not difficult at all Total Score: 1 Self-Efficacy 60-Day Re-eval Assessment We would like to know how confident you are in doing certain activities. Please select your confidence level for:: Select your confidence level for the following using the scale 1-10 where 1 is not at all confident and 10 is totally confident. Your score is the average of all 6 responses. Fatigue: How confident are you that you can keep the fatigue caused by your disease from interfering with the things you want to do? Select Number: 10 Physical Discomfort or Pain: How confident are you that you can keep the physical discomfort or pain of your disease from interfering with the things you want to do? Select Number: 10 Emotional Distress: How confident are you that you can keep the emotional distress caused by your disease from interfering with the things you want to do? Select Number: 10 Other Symptoms or Health Problems: How confident are you that you can keep other symptoms or health problems from interfering with the things you want to do? Select Number: 10 Different Tasks and Activities: How confident are you that you can do the different tasks and activities needed to manage your health condition so as to reduce your need to see a doctor? Select Number: 10 Medication: How confident are you that you can do things other than just taking medication to reduce how much your illness affects your everyday life? Select Number: 10 Total Score:: 10
[2018-04-26 06:48] VITALS: BP 108/52; BP 184/78
== END 2018-05-16 23:59 ==
LOC: CR 09:15
PROVIDERS: Family Provider Family Medicine; PCP Family Medicine; Referring Provider Internal Medicine Cardiovascular Disease; Visit Provider Internal Medicine Cardiovascular Disease
DX: I25.10 Atherosclerotic heart disease of native coronary artery without angina pectoris (principal); I10 Essential (primary) hypertension; Z95.5 Presence of coronary angioplasty implant and graft
CPT/HCPCS: 93798

== ENCOUNTER 2018-05-20 09:15 | Outpatient (RCR) | payer MEDICARE, SELFPAY ==
[2018-02-24 09:39] VITALS: BMI 25.8
[2018-05-17 01:07] VITALS: BP 108/52; BP 184/78
== END 2018-05-27 10:12 | disposition home or self-care (01) ==
LOC: CR 09:15
PROVIDERS: Family Provider Family Medicine; PCP Family Medicine; Referring Provider Internal Medicine Cardiovascular Disease; Visit Provider Internal Medicine Cardiovascular Disease
DX: I25.10 Atherosclerotic heart disease of native coronary artery without angina pectoris (principal); I10 Essential (primary) hypertension; Z95.5 Presence of coronary angioplasty implant and graft
CPT/HCPCS: 93798

== ENCOUNTER 2018-08-01 10:54 | Emergency (ER) | payer MEDICARE, SELFPAY ==
[2018-08-01 10:56] VITALS: BP 187/96; PULSE 109; RESP 18; TEMP 36.9; O2SAT 94; BMI 25.4
--- NOTE | 2018-08-01 11:01 | ED.RN ---
physician wants no oreders to be enter until able to do a physical exam on pt. pt to waiting room awaiting room placement
--- NOTE | 2018-08-01 11:53 | ED.VIS.GEN ---
History of Present Illness Chief Complaint: Cellulitis Detail of Chief Complaint: Sent for evaluation peritonsillar abscess Informant: Patient Onset: Days Context: Sudden Onset Timing: Continuous Quality: Swelling and mild discomfort left anterior neck Location: Left anterior neck Current Severity: Moderate Maximum Severity: Moderate Worsened by: Nothing Relieved by: Nothing Associated Symptoms: Nothing Narrative: Patient presents because of fullness and palpable mass left anterior neck. He was seen by physician who was concerned for peritonsillar abscess. He denies fever, chills night sweats. Denies rhinorrhea, congestion postnasal drainage. He denies sore throat. Does complain of gum irritation secondary to dentures. He denies weight gain or weight loss. He denies change in voice. He denies difficulty swallowing. - Past Medical History (1) High risk medication use Status: Acute (2) NSVT (nonsustained ventricular tachycardia) Status: Acute (3) Ventricular tachycardia Status: Acute Past Medical History - Allergies and Home Meds Allergies/Adverse Reactions: Allergies tetracycline Adverse Reaction (Mild, Verified 08/01/18 10:58) Nausea/Vom/Diarrhea Primary Care Physician: Chavez Martinez MD [Primary Care Provider] - Prior records reviewed: Yes Surgical History: rotator cuff repair - rotator cuff and bicep repair. Lives: Spouse/ Significant Other Smoking Status: Never smoker Alcohol: None Review of Systems General: Denies: Chills, Fever, Malaise, Subjective, Sweats, Weight loss Eyes: Denies: Visual changes - bilaterally, Blurred Vision - bilaterally, Diplopia ENT: Reports: - - He denies difficulty swallowing, difficulty breathing or change in voice. Denies: Bilateral ear pain, Rhinorrhea, Sore throat Cardiovascular: Denies: Chest pain, Palpitations Respiratory: Denies: Dyspnea, Cough, Dyspnea on exertion Gastrointestinal: Denies: Nausea, Vomiting Hematologic: Denies: Easy bruising, Easy bleeding Allergy: Denies: Uticaria, Swelling of the mouth, Swelling of the tongue Physical Exam Vital Signs/Narrative: Vital Signs Temp Pulse Resp BP Pulse Ox 08/01/18 10:56 98.5 F 109 H 18 187/96 H 94 Inital Vital Signs reviewed: Yes General: Well nourished, Well developed, No Acute Distress Head: Normocephalic, Atraumatic Eyes: Perrl, EOMI. Negative for: Pale conjunctiva, Scleral icterus ENT: Moist mucous membranes, No rhinorrhea, TM's clear, - - Uvula is midline. There is no exudate. There may be slight erythema left anterior tonsillar pillar. 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 There is minimal erythema noted. There is no cervical lymphadenopathy noted. There is no supraclavicular lymphadenopathy noted. Cardiovascular: Regular rate, Regular rhythm, No murmurs, Normal S1, Normal S2 Respiratory: No distress, CTA bilaterally, Chest nontender Skin: Normal color, No rash. 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 He does not have evidence of peritonsillar abscess. There is no evidence of exit of tonsillitis etc. Case was discussed with Dr. Antoine Thompson who patient is seen in the past. He will see patient as an outpatient for follow-up and further workup if indicated ED Disposition - Plan for ED Patient: Disposition: Home or Assisted Living Diagnosis: Branchial cleft cyst Referrals: Chavez Martinez MD [Primary Care Provider] - Antoine Thompson MD [STAFF PHYSICIAN] - Additional Instructions: Call Dr. Antoine Thompson's office for follow-up appointment. 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 Unfortunately, there have no information on brachial cleft cyst. 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 This can be safely worked up as an outpatient.
[2018-08-01 12:23] VITALS: BP 163/92; PULSE 98; RESP 16; O2SAT 94
== END 2018-08-01 12:25 | disposition home or self-care (01) ==
LOC: ED 12:07
PROVIDERS: Emergency Provider Emergency Medicine; Family Provider Family Medicine; PCP Family Medicine
DX: Q18.0 Sinus, fistula and cyst of branchial cleft (principal)
CPT/HCPCS: 99282; A4216

== ENCOUNTER → 2018-08-19 15:36 | Outpatient (CLI) | payer MEDICARE, SELFPAY ==
[2018-08-01 10:56] VITALS: BMI 25.4
[2018-08-19 15:49] LABS: Bacteria 0 SEEN /hpf (None Seen); Mucous, Urine 0 SEEN /hpf (<or=2+); White Blood Cells 0 SEEN /hpf (0-5)
[2018-08-19 15:57] LABS: Color, Urine Yellow (Yellow); Glucose, Dipstick Normal (Normal); Ketone-Dipstick Negative (Negative); Leukocyte Esterase-Dipstick Negative /ul (Negative); Nitrite-Dipstick Negative (Negative); Occult Blood-Urine 10 /ul (Negative); Protein-Dipstick Negative (Negative); Urine Bilirubin Dipstick Negative (Negative); Urine Clarity Clear (Clear); Urine Urobilinogen Normal (Normal)
[2018-08-19 16:06] LABS: Absolute Lymphocyte Count 1.15 X10^3/ul (0.83-4.51); Absolute Neutrophil Count 1.7 X10^3/uL (2.0-7.7); Basophil# 0.09 X10^3/uL; Basophil% 2.7 % (0-1); Hemoglobin 10.1 g/dl (13.0-16.5); Lymphocyte # 1.15 X10^3/ul (4.0); Mean Corp Hgb Conc 30.6 g/gl (32-36); Mean Corpuscular Hgb 24.9 pg (27.0-32.0); Mean Corpuscular Volume 81.3 fL (80-94); Mean Platelet Vol. 10.1 fl (6.2-12.0); Monocyte# 0.36 X10^3/uL; Monocyte% 10.7 % (0-10); Neutrophil # 1.68 X10^3/uL (2.7-7.7); Neutrophil % 49.6 % (47-70); Platelet Count 299 K/mm3 (150-450); RBC Distribution Width CV 13.4 % (11.6-14.6); Red Blood Count 4.06 M/mm3 (4.6-6.2); White Blood Count 3.4 K/mm3 (4.4-11.0)
[2018-08-19 16:14] LABS: Red Blood Cells-Urine 0-5 SEEN /hpf (0-5); Squamous Epithelial Cells - UA 0-5 SEEN /hpf (0-5)
[2018-08-19 16:17] LABS: ALB/GLOB Ratio 1.1 RATIO (0.9-2.4); AST(SGOT) 20 U/L (15-37); Alanine Aminotransfer ALT/SGPT 25 U/L (16-61); Albumin, Serum 3.6 g/dL (3.2-5.0); Alkaline Phosphatase 71 U/L (45-117); Anion Gap 5 (5-15); BUN 19 mg/dL (7-18); BUN/Creat Ratio 23.2 RATIO (10-20); Calcium,Total 8.8 mg/dL (8.5-10.1); Chloride 109 mmol/L (98-107); Cholesterol 163 mg/dL (200); Creatinine, Serum 0.82 mg/dL (0.70-1.30); EST Glomerular Filtration Rate 99 mL/min (>60); Est Glom Filt Rate - Afr Amer 120 mL/min (>60); Globulin 3.4 g/dL (2.2-4.2); Glucose 93 mg/dL (74-106); High Density Lipoprotein 40 mg/dL; Iron Binding Capacity,Total 356 ug/dL (250-450); PSA,Total- Diagnostic 5.51 ng/mL (0.0-4.0); Potassium 4.1 mmol/L (3.5-5.1); Sodium Level 142 mmol/L (136-145); Thyroid Stim Hormone (TSH) 1.06 uIU/mL (0.358-3.74); Triglycerides 85 mg/dL; Very Low Density Lipoprotein 17 mg/dL (5-40)
[2018-08-19 16:34] LABS: Vitamin B12 546 pg/mL (211-911)
[2018-08-19 16:48] LABS: POSITIVE COUNT NO; POSITIVE DIFFERENTIAL NO; POSITIVE MORPHOLOGY NO
== END ==
PROVIDERS: Family Provider Family Medicine; PCP Family Medicine; Referring Provider Family Medicine; Visit Provider Family Medicine
DX: I10 Essential (primary) hypertension (principal); D50.9 Iron deficiency anemia, unspecified; E53.8 Deficiency of other specified B group vitamins; Z79.899 Other long term (current) drug therapy; N42.9 Disorder of prostate, unspecified; I25.10 Atherosclerotic heart disease of native coronary artery without angina pectoris
CPT/HCPCS: 80053; 80061; 81001; 82607; 83550; 84153; 84443; 85025

== ENCOUNTER → 2018-08-30 15:25 | Outpatient (CLI) | payer MEDICARE, SELFPAY ==
[2018-08-01 10:56] VITALS: BMI 25.4
[2018-08-30 16:50] LABS: Amphetamine Urine VISTA NEGATIVE (<1000 ng/mL); Barbiturate Urine VISTA NEGATIVE (< 200 ng/mL); Benzodiazepine Urine VISTA NEGATIVE (< 200 ng/mL); Cocaine Urine VISTA NEGATIVE (< 300 ng/mL); Ecstacy Urine VISTA NEGATIVE (< 500 ng/mL); Methadone Urine VISTA NEGATIVE (< 300 ng/mL); PCP Urine VISTA NEGATIVE (< 25 ng/mL); THC Urine VISTA NEGATIVE (< 50 ng/mL); Vista UDS pH Range 6
== END ==
PROVIDERS: Family Provider Family Medicine; PCP Family Medicine; Referring Provider Family Medicine; Visit Provider Family Medicine
DX: M47.816 Spondylosis without myelopathy or radiculopathy, lumbar region (principal)
CPT/HCPCS: 80307

== ENCOUNTER → 2019-03-01 12:47 | Outpatient (CLI) | payer MEDICARE, SELFPAY ==
[2019-03-01 13:54] LABS: Absolute Lymphocyte Count 1.07 X10^3/uL (0.83-4.51); Absolute Neutrophil Count 2.9 X10^3/uL (2.0-7.7); Basophil# 0.08 X10^3/uL; Basophil% 1.7 % (0-1); Eosinophil# 0.13 X10^3/uL; Eosinophils% 2.8 % (0-5); Hematocrit 34.2 % (40-54); Hemoglobin 9.6 g/dL (13.0-16.5); Lymphocyte # 1.07 X10^3/ul (4.0); Lymphocyte % 22.7 % (19-41); Mean Corp Hgb Conc 28.1 g/dL (32-36); Mean Corpuscular Hgb 20.7 pg (27.0-32.0); Mean Corpuscular Volume 73.9 fL (80-94); Mean Platelet Vol. 10.6 fl (6.2-12.0); Monocyte# 0.51 X10^3/uL; Monocyte% 10.8 % (0-10); NRBC Flagged by Analyzer 0 % (0-5); Neutrophil # 2.92 X10^3/uL (2.7-7.7); Neutrophil % 61.8 % (47-70); Platelet Count 346 K/mm3 (150-450); RBC Distribution Width CV 16.5 % (11.6-14.6); RBC Distribution Width SD 43.5 fl (35.1-43.9); Red Blood Count 4.63 M/mm3 (4.6-6.2); White Blood Count 4.7 K/mm3 (4.4-11.0)
[2019-03-01 14:07] LABS: Cholesterol 165 mg/dL (200); High Density Lipoprotein 38 mg/dL; Iron 19 ug/dL (65-175); Iron Binding Capacity,Total 433 ug/dL (250-450); Triglycerides 189 mg/dL; Very Low Density Lipoprotein 38 mg/dL (5-40)
[2019-03-01 14:08] LABS: Vitamin B12 551 pg/mL (211-911)
[2019-03-02 16:31] LABS: PSA, Free 1.74 ng/mL; PSA, Free % 37.8 % (.); PSA, Total 4.6 ng/mL (0.0-4.0)
== END ==
PROVIDERS: Family Provider Family Medicine; PCP Family Medicine; Referring Provider Family Medicine; Visit Provider Family Medicine
DX: R97.20 Elevated prostate specific antigen [PSA] (principal); D50.9 Iron deficiency anemia, unspecified; E53.8 Deficiency of other specified B group vitamins; I10 Essential (primary) hypertension; I25.10 Atherosclerotic heart disease of native coronary artery without angina pectoris; I25.83 Coronary atherosclerosis due to lipid rich plaque
CPT/HCPCS: 80061; 82607; 83540; 83550; 84153; 85025

== ENCOUNTER → 2019-03-09 15:36 | Outpatient (CLI) | payer MEDICARE, SELFPAY ==
[2019-03-09 16:19] LABS: Absolute Lymphocyte Count 1.18 X10^3/uL (0.83-4.51); Absolute Neutrophil Count 3.6 X10^3/uL (2.0-7.7); Basophil# 0.09 X10^3/uL; Basophil% 1.6 % (0-1); Eosinophil# 0.14 X10^3/uL; Eosinophils% 2.5 % (0-5); Hematocrit 31.3 % (40-54); Hemoglobin 8.9 g/dL (13.0-16.5); Lymphocyte # 1.18 X10^3/ul (4.0); Lymphocyte % 21.1 % (19-41); Mean Corp Hgb Conc 28.4 g/dL (32-36); Mean Corpuscular Hgb 20.9 pg (27.0-32.0); Mean Corpuscular Volume 73.6 fL (80-94); Mean Platelet Vol. 10.3 fl (6.2-12.0); Monocyte# 0.56 X10^3/uL; NRBC Flagged by Analyzer 0 % (0-5); Neutrophil % 64.6 % (47-70); Platelet Count 311 K/mm3 (150-450); RBC Distribution Width CV 16.1 % (11.6-14.6); RBC Distribution Width SD 42.8 fl (35.1-43.9); Red Blood Count 4.25 M/mm3 (4.6-6.2); White Blood Count 5.6 K/mm3 (4.4-11.0)
== END ==
PROVIDERS: Family Provider Family Medicine; PCP Family Medicine; Referring Provider Family Medicine; Visit Provider Family Medicine
DX: D50.9 Iron deficiency anemia, unspecified (principal)
CPT/HCPCS: 85025

== ENCOUNTER → 2019-05-01 12:09 | Outpatient (CLI) | payer MEDICARE, SELFPAY ==
--- NOTE | 2019-05-01 | IMM_PTH ---
PATIENT: MARÍA ELENA ALAN LOC: [facility] U#:[id number] AGE/SX: 75/M ROOM: RE05/01/[address]: Dr. Chavez Martinez MD : 1950 BED: DIS: SPEC #: [id number] RECD: 05/03/19 07:32 STATUS: JIAN REAdin #: [id number] JAMEL: 05/01/19 00:[address]: Carloz May DEPT: IMMUNOHISTOCHEMISTRY RECD BY: Leann Townsend ENTERED: 05/03/19 07:33 SP TYPE: IMMUNO OTHR DR: Dr. Chavez Martinez MD Tissues: B - Stomach, NOS Procedures: H Pylori (initial) PHYSICIAN & INSTITUTION [place] [id number] SPECIMEN INFORMATION: Tissue Source: B - Antral biopsy Clinical Info: D50.8 Specimen Number: [id number] CPT code: 18817 METHODOLOGY: Deparaffinized sections of prefer/formalin-fixed tissue or PAP/DQ stained slides are incubated with monoclonal/polyclonal antibodies/oligonucleotide probes. Localization is made via biotin free immunoperoxidase method. Appropriate controls are performed and reacted as expected. Results on target cell population are indicated in the following table: RESULTS: ANTIBODY / CLONE RESULT Block B H Pylori (polyclonal) negative These tests were developed and their performance characteristics determined by [facility]. They may not have been cleared or approved by the [place] Food and Drug Administration. The FDA has determined that such clearance or approval is not necessary. INTERPRETATION: B. Antral biopsy: Negative for Helicobacter pylori organisms. SJ:lance 05/03/19
--- NOTE | 2019-05-02 | COLBX_PTH ---
PATIENT: MARÍA ELENA ALAN LOC: [facility] U#:[id number] AGE/SX: 75/M ROOM: RE05/01/[address]: Dr. Chavez Martinez MD : 1950 BED: DIS: SPEC #: [id number] RECD: 05/02/19 13:22 STATUS: JIAN BREE #: [id number] JAMEL: 05/02/19 00:[address]: Carloz May DEPT: SURGICAL PATHOLOGY RECD BY: Tres Chan ENTERED: 05/02/19 13:23 SP TYPE: COLON BX OTHR DR: Dr. Chavez Martinez MD Tissues: A - Duodenum, NOS B - Gastric mucous membrane C - Ascending colon Procedures: Surgery Specimen Level IV Comments: @ Ordering doctor for SUIV edited from to @ by RGOOD at 05/02/19 1503 @ Submitting doctor edited from to @ by RGOOD at 05/02/19 1503 HEADER OPERATION: EGD and colonoscopy PRE-OP DIAGNOSIS: D50.8 TISSUE SUBMITTED: A - Duodenal biopsy, B - Antral biopsy H/H, C - Ascending colon polyp MICROSCOPIC DIAGNOSIS A. Duodenal biopsy: A fragment of duodenal mucosa, no pathologic diagnosis. B. Antral biopsy: Mild gastritis. See microscopic description and comment. C. Ascending colon polyp, biopsy: Tubular adenoma. SJ:lance 05/03/19 COMMENT B. The results of immunohistochemistry for Helicobacter pylori will be reported separately ([id number]). MICROSCOPIC DESCRIPTION Slides are reviewed. B. The specimen shows fragments of gastric mucosa with chronic inflammatory cell infiltrates in the lamina propria consisting of lymphocytes and plasma cells, consistent with mild chronic gastritis. GROSS DESCRIPTION A - Received in fixative is one container labeled with the patient's name and designated duodenal biopsy. The specimen consists of one irregular fragment of light webb soft tissue that measures 0.4 x 0.3 x 0.1 cm. The specimen is totally submitted in one cassette. B - Received in fixative is one container labeled with the patient's name and designated antral biopsy. The specimen consists of two irregular fragments of light webb soft tissue that in aggregate measure 0.6 x 0.3 x 0.1 cm. The specimen is totally submitted in one cassette. C - Received in fixative is one container labeled with the patient's name and designated ascending colon polyp. The specimen consists of one irregular fragment of light webb soft tissue that measures 0.3 x 0.3 x 0.1 cm. The specimen is totally submitted in one cassette. / IRIS:lance 05/02/19 TC:1 CPT: 91244 x3
== END ==
PROVIDERS: Family Provider Family Medicine; PCP Family Medicine; Referring Provider Family Medicine; Visit Provider Family Medicine
DX: D50.8 Other iron deficiency anemias (principal)
CPT/HCPCS: 88305; 88342

== ENCOUNTER → 2019-06-26 16:00 | Outpatient (CLI) | payer MEDICARE, SELFPAY ==
--- NOTE | 2019-06-26 | IMM_PTH ---
PATIENT: MARÍA ELENA ALAN LOC: [facility] U#:[id number] AGE/SX: 75/M ROOM: RE06/26/[address]: Dr. Carloz May MD : 1950 BED: DIS: SPEC #: [id number] RECD: 06/28/19 12:56 STATUS: JIAN REQ #: [id number] JAMEL: 06/26/19 00:[address]: Carloz May DEPT: IMMUNOHISTOCHEMISTRY RECD BY: Leann Townsend ENTERED: 06/28/19 12:57 SP TYPE: IMMUNO OTHR DR: Dr. Chavez Martinez MD Tissues: A - Stomach, NOS Procedures: H Pylori (initial) PHYSICIAN & INSTITUTION [place] [address] SPECIMEN INFORMATION: Tissue Source: A - Antral biopsy Clinical Info: K25.9 Specimen Number: [id number] CPT code: 18232 METHODOLOGY: Deparaffinized sections of prefer/formalin-fixed tissue or PAP/DQ stained slides are incubated with monoclonal/polyclonal antibodies/oligonucleotide probes. Localization is made via biotin free immunoperoxidase method. Appropriate controls are performed and reacted as expected. Results on target cell population are indicated in the following table: RESULTS: ANTIBODY / CLONE RESULT Block A H Pylori (polyclonal) negative These tests were developed and their performance characteristics determined by [facility]. They may not have been cleared or approved by the U.S. Food and Drug Administration. The FDA has determined that such clearance or approval is not necessary. INTERPRETATION: A. Antral biopsy: Negative for Helicobacter pylori organisms. SJ:lance 06/28/19
--- NOTE | 2019-06-26 | EGD_PTH ---
PATIENT: MARÍA ELENA ALAN LOC: [facility] U#:[id number] AGE/SX: 75/M ROOM: RE06/26/[address]: Dr. Carloz May MD : 1950 BED: DIS: SPEC #: [id number] RECD: 06/27/19 12:17 STATUS: JIAN BREE #: [id number] JAMEL: 06/26/19 00:[address]: Carloz May DEPT: SURGICAL PATHOLOGY RECD BY: Evelyne Avila ENTERED: 06/27/19 14:34 SP TYPE: EGD BIOPSY ESTEBAN DR: Dr. Chavez Martinez MD Tissues: A - Gastric mucous membrane B - Gastric mucous membrane Procedures: Surgery Specimen Level IV HEADER OPERATION: EGD PRE-OP DIAGNOSIS: K25.9 TISSUE SUBMITTED: A. Antral biopsy H/H, B. Gastric nodule biopsy MICROSCOPIC DIAGNOSIS A. Gastric antrum, biopsy: Chronic active gastritis. See comment. B. Gastric nodule, biopsy: Fragments of gastric mucosa with chronic active gastritis. AM:lance 06/28/19 COMMENT A. The results of immunohistochemistry for Helicobacter pylori will be reported separately ([id number]). MICROSCOPIC DESCRIPTION Slides are reviewed. GROSS DESCRIPTION A - Received in fixative is one container labeled with the patient's name and designated antral biopsy. The specimen consists of one irregular fragment of light webb soft tissue that measures 0.3 x 0.4 x 0.1 cm. The specimen is totally submitted in one cassette. B - Received in fixative is one container labeled with the patient's name and designated gastric nodule biopsy. The specimen consists of two irregular fragments of light webb soft tissue that in aggregate measure 0.5 x 0.3 x 0.1 cm. The specimen is totally submitted in one cassette. / IRIS:lance 06/27/19 TC:2 CPT: 85366 x2
== END ==
PROVIDERS: PCP Family Medicine; Referring Provider Internal Medicine Gastroenterology; Visit Provider Internal Medicine Gastroenterology
DX: K25.9 Gastric ulcer, unspecified as acute or chronic, without hemorrhage or perforation (principal)
CPT/HCPCS: 88305; 88342

== ENCOUNTER → 2020-03-13 12:21 | Outpatient (CLI) | payer MEDICARE, SELFPAY ==
[2020-03-13 13:08] LABS: Cholesterol 164 mg/dL (200); High Density Lipoprotein 45 mg/dL; Iron Binding Capacity,Total 403 ug/dL (250-450); PSA,Total - Annual Screen 4.94 ng/mL (0.00-4.00); Triglycerides 176 mg/dL; Very Low Density Lipoprotein 35 mg/dL (5-40)
[2020-03-13 13:09] LABS: Vitamin B12 417 pg/mL (211-911)
[2020-03-14 13:55] LABS: Iron 82 ug/dL (65-175)
[2020-03-15 15:27] LABS: PSA, Free % 22.9 % (.); PSA, Total Ultrasensitive 4.8 ng/mL (0.0-4.0)
== END ==
PROVIDERS: PCP Family Medicine; Visit Provider Physician Assistant
DX: D50.9 Iron deficiency anemia, unspecified (principal); E53.8 Deficiency of other specified B group vitamins; I25.10 Atherosclerotic heart disease of native coronary artery without angina pectoris; I25.83 Coronary atherosclerosis due to lipid rich plaque; N40.1 Benign prostatic hyperplasia with lower urinary tract symptoms; R97.20 Elevated prostate specific antigen [PSA]
CPT/HCPCS: 80061; 82607; 83540; 83550; 84153; 84154; G0103

== ENCOUNTER → 2020-04-26 15:15 | Outpatient (CLI) | payer MEDICARE, SELFPAY ==
--- NOTE | 2020-04-26 09:30 | SEP_PTH ---
PATIENT: MARÍA ELENA ALAN LOC: [facility] U#:[id number] AGE/SX: 75/M ROOM: RE04/26/[address]: Dr. Antoine Thompson MD : 1950 BED: DIS: SPEC #: [id number] RECD: 04/26/20 15:13 STATUS: JIAN BREE #: [id number] JAMEL: 04/26/20 09:[address]: Antoine Thompson DEPT: SURGICAL PATHOLOGY RECD BY: Eula Chaudhari ENTERED: 04/29/20 09:49 SP TYPE: SEPTUM OTHR DR: Dr. Chavez Martinez MD Tissues: Nasal septum, NOS Procedures: Surgery Specimen Level IV HEADER OPERATION: Not noted PRE-OP DIAGNOSIS: Left septal mass TISSUE SUBMITTED: Left septal mass (nasal septum) MICROSCOPIC DIAGNOSIS Left nasal septal mass, biopsy: Polypoid fragment of respiratory mucosa with focal ulceration and fibrinoid material. AM:lance 04/30/20 MICROSCOPIC DESCRIPTION Slides are reviewed. GROSS DESCRIPTION Received in fixative is one container labeled with the patient's name and designated left septal mass. The specimen consists of a fragment of [id number]-[id number] soft tissue measuring 0.2 x 0.2 x 0.1 cm. The specimen is totally submitted in one cassette. / SJ:rg 04/29/20 TC:2 CPT: 07901
== END ==
PROVIDERS: PCP Family Medicine; Referring Provider Otolaryngology; Visit Provider Otolaryngology
DX: R22.9 Localized swelling, mass and lump, unspecified (principal)
CPT/HCPCS: 88304; 88305

== ENCOUNTER 2020-07-22 14:04 | Outpatient (RCR) | payer MEDICARE, SELFPAY ==
[2020-07-18] MEDS: COVID-19 VACC, MRNA(PFIZER)/PF 30 MCG/0.3 ML SYRINGE IM (16:14)
[2020-08-08] MEDS: COVID-19 VACC, MRNA(PFIZER)/PF 30 MCG/0.3 ML SYRINGE IM (15:23)
== END 2020-10-22 23:59 ==
LOC: IMMUN 14:04
PROVIDERS: PCP Family Medicine; Visit Provider Family Medicine
DX: Z23 Encounter for immunization (principal)
CPT/HCPCS: 0001A; 0002A; 91300

== ENCOUNTER → 2020-09-09 11:36 | Outpatient (CLI) | payer MEDICARE, SELFPAY ==
[2020-09-09 11:59] LABS: Bacteria 0 SEEN /hpf (None Seen); Mucous, Urine 0 SEEN /hpf (<or=2+); Red Blood Cells-Urine 0 SEEN /hpf (0-5); Squamous Epithelial Cells - UA 0 SEEN /hpf (0-5); White Blood Cells 0 SEEN /hpf (0-5)
[2020-09-09 12:06] LABS: Absolute Lymphocyte Count 1.38 X10^3/uL (0.83-4.51); Absolute Neutrophil Count 2.8 X10^3/uL (2.0-7.7); Basophil# 0.08 X10^3/uL; Basophil% 1.6 % (0-1); Eosinophil# 0.12 X10^3/uL; Eosinophils% 2.4 % (0-5); Hematocrit 44.9 % (40-54); Hemoglobin 14.6 g/dL (13.0-16.5); Lymphocyte # 1.38 X10^3/ul (0.83-4.51); Lymphocyte % 27.7 % (19-41); Mean Corp Hgb Conc 32.5 g/dL (32-36); Mean Corpuscular Hgb 28.2 pg (27.0-32.0); Mean Corpuscular Volume 86.8 fL (80-94); Monocyte# 0.57 X10^3/uL; Monocyte% 11.4 % (0-10); NRBC Flagged by Analyzer 0 % (0-5); Neutrophil # 2.82 X10^3/uL (2.7-7.7); Neutrophil % 56.5 % (47-70); Platelet Count 245 K/mm3 (150-450); RBC Distribution Width SD 40.5 fl (35.1-43.9); Red Blood Count 5.17 M/mm3 (4.6-6.2)
[2020-09-09 12:13] LABS: Color, Urine Yellow (Yellow); Glucose, Dipstick Normal (Normal); Ketone-Dipstick Negative (Negative); Leukocyte Esterase-Dipstick Negative /ul (Negative); Nitrite-Dipstick Negative (Negative); Occult Blood-Urine Negative /ul (Negative); Protein-Dipstick Negative (Negative); Urine Bilirubin Dipstick Negative (Negative); Urine Clarity Clear (Clear); Urine Urobilinogen Normal (Normal)
[2020-09-09 12:20] LABS: Vitamin B12 391 pg/mL (211-911)
[2020-09-09 12:25] LABS: ALB/GLOB Ratio 1.1 RATIO (0.9-2.4); AST(SGOT) 27 U/L (15-37); Alanine Aminotransfer ALT/SGPT 35 U/L (16-61); Alkaline Phosphatase 72 U/L (45-117); Anion Gap 4 (5-15); BUN 18 mg/dL (7-18); BUN/Creat Ratio 21.8 RATIO (10-20); Calcium,Total 9.3 mg/dL (8.5-10.1); Chloride 104 mmol/L (98-107); Cholesterol 171 mg/dL (200); Creatinine, Serum 0.83 mg/dL (0.70-1.30); EST Glomerular Filtration Rate 98 mL/min (>60); Est Glom Filt Rate - Afr Amer 118 mL/min (>60); Globulin 3.6 g/dL (2.2-4.2); Glucose 110 mg/dL (74-106); High Density Lipoprotein 46 mg/dL; Iron Binding Capacity,Total 395 ug/dL (250-450); Potassium 4.2 mmol/L (3.5-5.1); Protein, Total 7.6 g/dL (6.4-8.2); Sodium Level 138 mmol/L (136-145); Triglycerides 173 mg/dL; Very Low Density Lipoprotein 35 mg/dL (5-40)
[2020-09-09 17:58] LABS: PSA,Total- Diagnostic 5.07 ng/mL (0.0-4.0)
[2020-09-11 10:12] LABS: Iron 78 ug/dL (65-175)
== END ==
PROVIDERS: PCP Family Medicine; Referring Provider Physician Assistant; Visit Provider Physician Assistant
DX: I25.10 Atherosclerotic heart disease of native coronary artery without angina pectoris (principal); I25.83 Coronary atherosclerosis due to lipid rich plaque; I10 Essential (primary) hypertension; D50.9 Iron deficiency anemia, unspecified; E53.8 Deficiency of other specified B group vitamins; R97.20 Elevated prostate specific antigen [PSA]
CPT/HCPCS: 80053; 80061; 81001; 82607; 83540; 83550; 84153; 85025

== ENCOUNTER 2021-03-17 08:15 | Day surgery (SDC) | payer MEDICARE, SELFPAY ==
--- NOTE | 2021-03-07 15:58 | PCM.HP.BLA ---
History and Physical Date of Admission: 03/17/21 Chief Complaint: Pain in lower back,right buttock,right leg History of Present Illness: This is a 70 Y/O male who was seen and evaluated at our office today as a new consult. Pt was referred to this office by Dr Sunshine. Pt's chief complaint is low back pain with pain radiating into his right hip and down his right leg into the front of his right calf. Pt states he will at times get cramping in his foot depending upon the exercise. Pt states he has had this pain for years, States years ago he was running in a field and his foot went into hole and his back pain has been ever since. Pt states the pain can be sharp at times but he knows it is there. States when he walks he feels it with every step. States stretches and exercises help. Pt has had PT with relief and continues the exercises and pt has had a MRI. Pt feels the therapy helps his pain. Pt is here for an injection to see if that would help. Pt has had an injection in the past with relief. Pain: lower back,right buttock,right leg Quality: constant,varies in intensity Region: Pain in the lower back into the right buttock and has pain down the right leg. 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 Review of Systems: ear noises,frequent urination,sexual difficulty,lower back injury, dripping after urination,prostate problems. Patient denies any recent fever, chills, headache, change in weight without trying, vision or hearing problems. No cp, sob, cuevas, pnd, orthopnea, or peripheral edema.They note no lumps or swollen glands, no new rashes, changing moles, or change in bowel or bladder function.Mood has been frustrated. Past Medical History: h/o coronary artery disease h/o hypertension h/o thrombosis h/o Arthritis h/o glaucoma h/o peripheral vascular disease s/p left rotator cuff repair 2014 s/p heart stent 2017 s/p left leg vein stripping Family History: ======== Structured Family History ======== Father: Heart disease Mother: Stroke, Hypertension Social History: [Tobacco: Former smoker (0 pk yrs / 0 yrs quit) Start Date: 02/11/2021 End Date: 02/11/2021 Pipe Smoker: No Cigar Smoker: No Chewing Tobacco User: No Electronic Cigarette User: No] Living situation: Occupation: Retired Tobacco: Former (quit 1974) Cigar-rarely EtOH: Occasional Rec. drugs: Denies Allergies: Tetracycline Medications: 1) alfuzosin 10 mg oral tablet, extended release, Take 1 tablet by mouth once daily 2) clopidogrel 75 mg oral tablet, Take 1 tablet by mouth once daily 3) ezetimibe 10 mg oral tablet, Take 1 tablet by mouth once daily 4) Glucosamine Chond Complex/MSM Oral Tablet CAPLET, Take 1 tablet by mouth once daily 5) lisinopril 20 mg oral tablet, Take 1 tablet by mouth once daily 6) meclizine 25 mg oral tablet, Take 1 tablet by mouth once daily 7) meloxicam 7.5 mg oral tablet, Take 1 tablet by mouth 2 times a Day 8) nitroglycerin 0.4 mg sublingual tablet, as directed prn 9) pantoprazole 40 mg oral delayed release tablet, Take 1 tablet by mouth once daily 10) Saw [place] oral capsule, Take 1 tablet by mouth once daily 11) sildenafil 100 mg oral tablet, Take 1 tablet by mouth prn 12) verapamil 120 mg oral tablet, Take 1 tablet by mouth once daily 13) Vitamin B Complex oral capsule, Take 1 tablet by mouth once daily 14) Vitamin B12 1000 mcg oral tablet, Take 1 tablet by mouth once daily 15) Vitamin D3 2000 intl units (50 mcg) oral capsule, Take 1 tablet by mouth once daily 16) Xarelto 10 mg oral tablet, Take 1 tablet by mouth once daily Physical Examination: Wt: 185.2 lb Ht/Ln: 70 in BMI: 26.6 BP: 139/77 Pulse: 86 RR: 16 Temp: 97.1F Pain: 7 Well nourished and well developed in no acute distress. Alert and oriented to person, place and time. Affect is normal and appropriate. Mucosa pink and moist. Respirations even and unlabored. Neck is supple without significant lymphadenopathy or thyromegaly. Abdomen soft & non-tender. No HSM or masses appreciated. Extremities show no cyanosis, clubbing, or edema. Musculoskeletal exam: pt is ambulating to and from the examination room with an antalgic gait without any assistance of any devices, pt was able to ambulate on his heels and tip toes without difficulty, ROM of the lumbar spine is limited to 40 degrees flexion and 25 degrees extension, lateral rotation with pain. On inspection of the lower back there is no surgical scar. Alignment of the spine appears normal. On superficial and deep palpation there is tenderness at the right paraspinal muscle without muscle spasms, there is no step off on the spinous process. There is tenderness and positive facet loading on the right, negative SI joint tenderness , SLR test is positive at 40 degrees on the right and positive 40 degrees on the left, PAUL test is negative on the right and positive on the left, motor function is 5/5 on the right lowe extremity muscles and 5/5 on the left lower extremity muscles, sensory exam intact to light touch on the right and the left, reflexes are symmetrical bilateral and 2+ on the right knee jerk and Achilles and 2+ on the left knee jerk and Achilles, pulses and capillary refill are intact. 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 OARRS was reviewed today. UDS was performed today and will be reviewed on the next encounter to monitor pt medications compliance. SOAPP score is 4 MRI of the lumbar spine was reviewed with the pt today and they appear to understand. There are no signs of diversion or addiction with the pt, there is also no signs of abuse or misuse, continues to do well with their medications without any side effects, we will continue monitoring the pt closely. Pt has tried multiple modalities with no success, we will schedule the pt for a therapeutic/diagnostic right lumbar transforaminal epidural steroid injection L4-S1 under fluoroscopy We have discussed the risks, benefits as well as alternatives of the procedure and the patient appears to understand and would like to proceed with the above plan. Reviewed with the pt today our opioid agreement and they appear to understand. PEG was reviewed today. Life style modifications were also discussed today and the pt appears to understand. Risks and benefits of the above meds were discussed with the pt and they appear to understand. The common side effects of the medications were discussed and all of their questions and concerns were answered and they appear to understand Discussed natural and expected course of this diagnosis and need to alert me if symptoms do not follow expected course, or if any worse. Pt is to continue with his PT and HEP. The above plan was discussed today with the pt in detail and they appear to understand and agrees to continue with the plan.
[2021-03-17 08:50] VITALS: BP 159/81; PULSE 85; RESP 16; TEMP 36.9; O2SAT 97; BMI 26.4
[2021-03-17] MEDS: Lactated Ringers 1,000 ML 100 ML IV (09:05)
--- NOTE | 2021-03-17 10:00 | RAD_ITS ---
STUDY: X-RAY - LUMBAR SPINE REASON FOR EXAM: Male, 71 years old. TRANSFORAMINAL EPIDURAL INJECTION, L4-S1, RIGHT TECHNIQUE: Fluoroscopic guidance was provided for operative procedure epidural injection. The radiologist was not present in the room. COMPARISON: None FINDINGS: 2 images were obtained during the procedure revealing the needle below the left pedicle at L4 and L5 with injection of contrast visualize at this level. RAD/Lumbar Spine 2 or 3 Views IMPRESSION: Fluoroscopy-guided epidural injection as described. For details please see procedural report. Electronically Signed: Carolyn Andrew MD at 1:41 EDT , Service support ,
[2021-03-17] MEDS: MethylPREDNISolone Acetate 80 MG/ML Vial (10:14)
[2021-03-17] MEDS: Bupivacaine 0.25% 30 ML Vial (10:15)
[2021-03-17] MEDS: Lidocaine 1% (30 ml sdv) 30 ML Vial (10:15)
--- NOTE | 2021-03-17 10:16 | PCM.OPRPT ---
Report of Operation Date of Procedure: 03/17/21 Description of Surgical Findings:: PREOPERATIVE DIAGNOSIS: Lumbosacral radiculopathy, lumbosacral degenerative disc disease, lumbosacral spinal stenosis POSTOPERATIVE DIAGNOSIS: Lumbosacral radiculopathy, lumbosacral degenerative disc disease, lumbosacral spinal stenosis PROCEDURE PERFORMED: Right-sided lumbar transforaminal epidural steroid injection, L4-5 and L5-S1. ANESTHESIA: MAC BLOOD LOSS: Minimal COMPLICATIONS: None DESCRIPTION OF PROCEDURE: History and physical of today was reviewed. Risks and benefits of the procedure were explained. The patient understood and agreed to proceed. Informed consent was obtained. IV inserted per routine protocol. The patient was taken to the operating room and placed in the prone position with a pillow positioned underneath the abdomen. The right side of the lower back was prepped and draped in a sterile fashion using iodine x3. Under fluoroscopy guidance on oblique view, the L4 through S1 vertebral bodies were visualized. The skin and subcutaneous tissue was anesthetized with approximately 5 mL of 1% lidocaine using a 25-gauge regular needle. Under direct visualization with fluoroscopy at approximately 35-degree angle, starting on the right L4, ending on the right L5, using a 22-gauge 5-inch spinal needle, the needle was advanced via the skin. The tip of the needle was maneuvered and directed towards the inferior and medial gutter of the transverse process at the superiormost aspect of the neural foramen. Once the tip of the needle was at the vicinity of the foramen, after negative aspiration for blood or CSF, a total of 1 mL of contrast was injected in divided doses between both levels to confirm correct placement of the needle as well as medial spread. The confirmation was obtained on AP as well as lateral view. After repeated negative aspiration and confirmation on AP as well as lateral view, a total of 6 mL of preservative-free 0.25% Marcaine with 80 mg of Depo-Medrol was injected in divided doses between both levels. The needles were then removed intact. The patient experienced no sign or symptoms of intrathecal or intravascular injection. The patient experienced no paresthesia. The procedure was completed without any apparent difficulty or any complications. The patient appeared to tolerate it well . Assessment and plan: This is a 71-year-old male with lumbosacral radiculopathy, lumbosacral degenerative disc disease, lumbosacral spinal stenosis status post right-sided lumbar transforaminal epidural steroid injection L4-5, L5-S1, patient will continue his current medications, patient will follow in approximately 2 weeks for reevaluation.
[2021-03-17 10:22] VITALS: BP 159/81; BP 91/63; PULSE 79; RESP 18; TEMP 36.4; O2SAT 96
[2021-03-17 10:25] VITALS: BP 111/70; BP 159/81; PULSE 77; RESP 18; O2SAT 95
[2021-03-17 10:30] VITALS: BP 108/75; BP 159/81; PULSE 76; RESP 18; O2SAT 93
[2021-03-17 10:32] VITALS: BP 112/91; BP 159/81; PULSE 76; RESP 18; TEMP 36.3; O2SAT 94
[2021-03-17 10:50] VITALS: BP 159/81
== END 2021-03-17 11:00 | disposition home or self-care (01) ==
LOC: SDC 08:20 → AC 08:22
PROVIDERS: PCP Family Medicine; Referring Provider Anesthesiology Pain Medicine; Visit Provider Anesthesiology Pain Medicine
PROC: 3E0S3BZ Introduction of Anesthetic Agent into Epidural Space, Percutaneous Approach (ICD-10-PCS; CPT 1922; principal; 2021-03-17 09:55)
DX: M51.37 Other intervertebral disc degeneration, lumbosacral region (principal); M47.817 Spondylosis without myelopathy or radiculopathy, lumbosacral region; M48.07 Spinal stenosis, lumbosacral region; Z79.899 Other long term (current) drug therapy; M46.96 Unspecified inflammatory spondylopathy, lumbar region; I10 Essential (primary) hypertension; I25.10 Atherosclerotic heart disease of native coronary artery without angina pectoris; I73.9 Peripheral vascular disease, unspecified; M47.27 Other spondylosis with radiculopathy, lumbosacral region; M51.17 Intervertebral disc disorders with radiculopathy, lumbosacral region; Z79.01 Long term (current) use of anticoagulants; Z79.1 Long term (current) use of non-steroidal anti-inflammatories (NSAID); Z82.49 Family history of ischemic heart disease and other diseases of the circulatory system; Z87.891 Personal history of nicotine dependence; Z88.1 Allergy status to other antibiotic agents; Z95.5 Presence of coronary angioplasty implant and graft
CPT/HCPCS: 01922; 64484; 64483; 72100; J7120

== ENCOUNTER → 2021-03-28 11:16 | Outpatient (CLI) | payer MEDICARE, SELFPAY ==
[2021-03-28 11:22] LABS: Bacteria 0 SEEN /hpf (None Seen); Mucous, Urine 0 SEEN /hpf (<or=2+); Red Blood Cells-Urine 0 SEEN /hpf (0-5); Squamous Epithelial Cells - UA 0 SEEN /hpf (0-5); White Blood Cells 0 SEEN /hpf (0-5)
[2021-03-28 11:41] LABS: Color, Urine Yellow (Yellow); Glucose, Dipstick Normal (Normal); Ketone-Dipstick Negative (Negative); Leukocyte Esterase-Dipstick Negative /ul (Negative); Nitrite-Dipstick Negative (Negative); Occult Blood-Urine Negative /ul (Negative); Protein-Dipstick Negative (Negative); Urine Bilirubin Dipstick Negative (Negative); Urine Clarity Clear (Clear); Urine Urobilinogen Normal (Normal)
[2021-03-28 11:49] LABS: Vitamin B12 515 pg/mL (211-911)
[2021-03-28 11:51] LABS: Cholesterol 147 mg/dL (200); High Density Lipoprotein 50 mg/dL; Iron 114 ug/dL (65-175); Iron Binding Capacity,Total 349 ug/dL (250-450); PERCENT IRON SATURATION 32.7 % (15.0-55.0); PSA,Total- Diagnostic 4.33 ng/mL (0.0-4.0); Triglycerides 83 mg/dL; Very Low Density Lipoprotein 17 mg/dL (5-40)
== END ==
PROVIDERS: PCP Family Medicine; Referring Provider Physician Assistant; Visit Provider Physician Assistant
DX: D50.9 Iron deficiency anemia, unspecified (principal); E53.8 Deficiency of other specified B group vitamins; I10 Essential (primary) hypertension; I25.10 Atherosclerotic heart disease of native coronary artery without angina pectoris; I25.83 Coronary atherosclerosis due to lipid rich plaque; R97.20 Elevated prostate specific antigen [PSA]
CPT/HCPCS: 80061; 81001; 82607; 83540; 83550; 84153

== ENCOUNTER 2021-12-15 07:31 | Day surgery (SDC) | payer MEDICARE, SELFPAY ==
[2021-12-15] VITALS (7 sets, daily range): BP systolic 94–139; BP diastolic 59–91; PULSE 59–86; RESP 16; TEMP 36.6–37.3; O2SAT 92–98; BMI 25.9
[2021-12-15] MEDS: Lactated Ringers 1,000 ML 15 ML IV (08:20)
--- NOTE | 2021-12-15 09:00 | RAD_ITS ---
PROCEDURE: Right L4 S1 transforaminal nerve injection. DATE OF EXAMINATION: 12/15/2021 INDICATION: 71-year-old male presenting with low back pain. EXAMINATION/TECHNIQUE: Transforaminal nerve block. COMPARISON: None. FLUOROSCOPY TIME: 0:14 minutes/seconds. FINDINGS: 6 spot fluoroscopic images were obtained intraoperatively. Fluoroscopic images of the lumbosacral junction were presented, images demonstrate needle placement along the right lower lumbar spine and contrast injection. No radiologist was present for the procedure, please refer to operative report for details. RAD/Lumbar Spine 2 or 3 Views IMPRESSION: Please refer to operative report for details. Electronically Signed: Je Higuera MD at 13:57 EDT ,
[2021-12-15] MEDS: Lidocaine 1% (5 ml sdv) 5 ML Vial (09:03)
[2021-12-15] MEDS: Bupivacaine 0.25% 30 ML Vial (09:05)
[2021-12-15] MEDS: MethylPREDNISolone Acetate 80 MG/ML Vial (09:05)
--- NOTE | 2021-12-15 13:58 | OP.PCM_ITS ---
Report of Operation Date of Procedure: 12/15/21 Description of Surgical Findings:: PREOPERATIVE DIAGNOSIS: Lumbosacral radiculopathy, lumbosacral degenerative disc disease, lumbosacral spinal stenosis POSTOPERATIVE DIAGNOSIS: Lumbosacral radiculopathy, lumbosacral degenerative disc disease, lumbosacral spinal stenosis PROCEDURE PERFORMED: Right-sided lumbar transforaminal epidural steroid injectio n, L4-5 and L5-S1. ANESTHESIA: BLOOD LOSS: COMPLICATIONS: DESCRIPTION OF PROCEDURE: History and physical of today was reviewed. Risks and benefits of the procedure were explained. The patient understood and agreed to proceed. Informed consent was obtained. IV inserted per routine protocol. The patient was taken to the operating room and placed in the prone position with a pillow positioned underneath the abdomen. The right side of the lower back was prepped and draped in a sterile fashion using iodine x3. Under fluoroscopy guidance on oblique view, the L4 through S1 vertebral bodies were visualized. The skin and subcutaneous tissue was anesthetized with approximately 5 mL of 1% lidocaine using a 25-gauge regular needle. Under direct visualization with fluoroscopy at approximately 35-degree angle, starting on the right L4, ending on the right L5, using a 22-gauge 5-inch spinal needle, the needle was advanced via the skin. The tip of the needle was maneuvered and directed towards the inferior and medial gutter of the transverse process at the superiormost aspect of the neural foramen. Once the tip of the needle was at the vicinity of the foramen, after negative aspiration for blood or CSF, a total of 1 mL of contrast was injected in divided doses between both levels to confirm correct placement of the needle as well as medial spread. The confirmation was obtained on AP as well as lateral view. After repeated negative aspiration and confirmation on AP as well as lateral view, a total of 6 mL of preservative-free 0.25% Marcaine with 80 mg of Depo-Medrol was injected in divided doses between both levels. The needles were then removed intact. The patient experienced no sign or symptoms of intrathecal or intravascular injection. The patient expe rienced no paresthesia. The procedure was completed without any apparent difficulty or any complications. The patient appeared to tolerate it well. Assessment and plan: This is a 71-year-old male with lumbosacral radiculopathy, lumbosacral degenerative disc disease, lumbosacral spinal stenosis status post right-sided lumbar transforaminal epidural steroid injection L4-5, L5-S1, patient will continue his current medications, patient will follow in approximately 2 weeks for reevaluation.
== END 2021-12-15 10:39 | disposition home or self-care (01) ==
LOC: SDC 07:32 → AC 07:34
PROVIDERS: PCP Family Medicine; Referring Provider Anesthesiology Pain Medicine; Visit Provider Anesthesiology Pain Medicine
PROC: 3E0S3BZ Introduction of Anesthetic Agent into Epidural Space, Percutaneous Approach (ICD-10-PCS; CPT 62322; principal; 2021-12-15 09:15)
DX: M51.17 Intervertebral disc disorders with radiculopathy, lumbosacral region (principal); M48.07 Spinal stenosis, lumbosacral region; I25.10 Atherosclerotic heart disease of native coronary artery without angina pectoris; I10 Essential (primary) hypertension; K21.9 Gastro-esophageal reflux disease without esophagitis; Z79.82 Long term (current) use of aspirin; Z79.01 Long term (current) use of anticoagulants; Z79.899 Other long term (current) drug therapy
CPT/HCPCS: 64484; 64483; 72100; J7120

== ENCOUNTER 2021-12-28 07:49 | Emergency (ER) | payer MEDICARE, SELFPAY ==
[2021-12-28 07:50] VITALS: BP 123/55; PULSE 99; RESP 17; TEMP 36.6; O2SAT 96; BMI 26.7
--- NOTE | 2021-12-28 07:55 | RAD_ITS ---
STUDY: X-RAY - RIGHT ANKLE REASON FOR EXAM: Male, 71 years old. Pain and swelling TECHNIQUE: 3 view(s) of the ankle. COMPARISON: None. FINDINGS: Normal visualized distal tibia and fibula. Normal medial and lateral malleoli. Normal tibiotalar articulation and ankle mortise. Normal visualized talus. Calcaneal spurs The visualized subtalar, talonavicular, calcaneocuboid and tarsal articulations are normal. Diffuse soft tissue swelling RAD/Ankle min 3 Views IMPRESSION: Although there is no demonstrated fracture or ankle mortise and amount, there is diffuse soft tissue swelling, particularly laterally. A subtle occult fracture could be present overlooked. Calcaneal spurs Electronically Signed: Flavio Wiggins MD at 8:16 EDT ,
--- NOTE | 2021-12-28 08:32 | ED.VIS.LOWEX ---
HPI History of Present Illness Chief Complaint: Lower Extremity Injury Narrative Narrative: 71-year-old male presenting with right ankle pain. He states he stepped too fast off of a step and rolled his ankle. He is ambulatory into the ED and has a stable gait. He describes pain in the distal ankle on the lateral aspect. No numbness or tingling. He denies falling and hitting his head. No other injury sustained. [facility] Medical History Alcohol use Arthritis Back pain Cardiology follow-up encounter DVT (deep venous thrombosis) Former smoker Gastric reflux High cholesterol History of edema History of pain when walking History of stress test Hx of coronary artery disease Hypertension Injury of back Low iron NSVT (nonsustained ventricular tachycardia) Prostate disease Ventricular tachycardia Vertigo Wears dentures Wears glasses Home Medications lisinopril 40 mg tablet 40 mg PO DAILY #30 tabs 09/13/17 [Rx Last Taken 03/17/21] cholecalciferol (vitamin D3) 50 mcg (2,000 unit) capsule (Vitamin D3) 2,000 unit PO DAILY 02/24/18 [History Last Taken Unknown] cyanocobalamin (vitamin B-12) 500 mcg tablet 1,000 mcg PO DAILY@0800 02/24/18 [History Last Taken Unknown] ferrous sulfate 325 mg (65 mg iron) tablet 325 mg PO QODAY 02/24/18 [History Last Taken Unknown] meclizine 25 mg chewable tablet (Travel Sickness (meclizine)) 25 mg PO PRN PRN Dizziness 02/24/18 [History Last Taken Unknown] nitroglycerin 400 mcg/spray translingual 0.4 mg sublingual PRN PRN Cardiac/Chest Pain 02/24/18 [History Last Taken Unknown] pantoprazole 40 mg tablet,delayed release 40 mg PO DAILY 02/24/18 [History Last Taken Unknown] rivaroxaban 10 mg tablet (Xarelto) 10 mg PO DAILY 02/24/18 [History Last Taken 12/12/21] verapamil 120 mg 24 hr capsule,extended release 120 mg PO DAILY 02/24/18 [History Last Taken Unknown] vitamin B complex (Balanced B-50 tablet) 1 ea PO DAILY 02/24/18 [History Last Taken Unknown] alfuzosin 10 mg tablet,extended release 24 hr 10 mg PO DAILY 03/11/21 [History Last Taken Unknown] ezetimibe 10 mg tablet 10 mg PO DAILY 03/11/21 [History Last Taken Unknown] latanoprost 0.005 % eye drops 1 drp EACH EYE QPM 03/11/21 [History Last Taken Unknown] sildenafil 50 mg tablet (Viagra) 50 mg PO DAILY PRN Erectile Dysfunction 03/11/21 [History Last Taken Unknown] aspirin 81 mg tablet 81 mg PO DAILY 12/15/21 [History Last Taken Unknown] Allergy/AdvReac Type Severity Reaction Status Date / Time tetracycline AdvReac Mild Nausea/Vom/ Verified 12/28/21 07:50 Diarrhea Surgical History History of cardiac catheterization History of vein stripping Hx of heart artery stent Hx of left cataract extraction Hx of rotator cuff surgery Social History Smoking Status: Former smoker ROS ROS ED Constitutional Constitutional ED: Denies chills or fever(s) Eyes Eyes: Denies change in vision ENT ENT ED: Denies rhinorrhea or sore throat Cardiovascular Cardiovascular: Denies chest pain or palpitations Respiratory/Chest Respiratory/Chest: Denies cough or dyspnea Gastrointestinal Gastrointestinal: Denies abdominal pain or constipation Genitourinary Genitourinary ED: Denies dysuria or hematuria Musculoskeletal Musculoskeletal: Reports other Details: Right ankle pain Integumentary Denies abscess or Abrasions Neurologic Neurologic: Denies headache(s) or paresthesias EXAM Physical Exam Const Vital Signs: 12/28/21 07:50 Temperature 97.8 F Temperature Source Temporal Pulse Rate 99 Respiratory Rate 17 Blood Pressure 123/55 H Blood Pressure Mean 77 Pulse Ox 96 Oxygen Delivery Method Room Air Positive well nourished General Appearance ED: NAD HEENT Reports moist mucous membranes normocephalic and atraumatic Resp normal respiratory effort and no retractions Cardio regular rate and regular rhythm Extremity Extremity Narrative: Tenderness palpation right distal tibia and right lateral malleolus. There is bruising and swelling associated. No tenderness in the foot. DP/PTs +2/4 in the right foot. Neuro oriented x3 and CN's II-XII intact bilaterally Psych mental status grossly normal MDM MDM MDM Narrative Medical decision making narrative: Patient presenting with right ankle pain. When ambulated he actually ambulates pretty briskly. He does have an antalgic gait. X-ray of the right ankle my interpretation shows no acute fracture or subluxation. Radiologist does agree. Patient counseled to alternate Tylenol and ibuprofen for pain. He does elevated and ice as frequently as possible. He is placed in Anders wrap and Aircast. He declines crutches. Patient stable for discharge at this time. Impression: 1. Right ankle sprain 2. Mechanical fall Lab Data Attestation: I reviewed the patient's lab results. Radiography Diagnostic Testing: Clinical Impression(s) from Imaging Studies Ankle X-Ray 12/28/21 07:55 IMPRESSION: Although there is no demonstrated fracture or ankle mortise and amount, there is diffuse soft tissue swelling, particularly laterally. A subtle occult fracture could be present overlooked. Calcaneal spurs Electronically Signed: Flavio Wiggins MD at 8:16 EDT Reading Location ID and State: [address] [place] [address] , Service support , Discharge Plan Triage Chief Complaint: Lower Extremity Injury ED Provider: Freeman Castillo Dx/Rx/DC Orders Instructions: ED Ankle Sprain (Adult) Prescriptions: No Action lisinopril 40 MG tablet 40 mg PO DAILY Qty: 30 0RF cyanocobalamin (vitamin B-12) 500 MCG tablet 1,000 mcg PO DAILY@0800 pantoprazole 40 MG tablet 40 mg PO DAILY ferrous sulfate 325 MG tablet 325 mg PO QODAY nitroglycerin 0.4 MG bottle 0.4 mg sublingual PRN PRN (Reason: Cardiac/Chest Pain) vitamin B complex [Balanced B-50] 1 EACH tablet 1 ea PO DAILY verapamil 120 MG capsule,ext rel. pellets 24 hr 120 mg PO DAILY meclizine [Travel Sickness (meclizine)] 25 MG tablet,chewable 25 mg PO PRN PRN (Reason: Dizziness) cholecalciferol (vitamin D3) [Vitamin D3] 2,000 UNIT capsule 2,000 unit PO DAILY Xarelto 10 MG tablet 10 mg PO DAILY latanoprost 0.005 % Drops 1 drp EACH EYE QPM sildenafil [Viagra] 50 mg Tablet 50 mg PO DAILY PRN (Reason: Erectile Dysfunction) ezetimibe 10 mg Tablet 10 mg PO DAILY alfuzosin 10 mg Tablet Extended Release 24 Hr 10 mg PO DAILY aspirin 81 mg Tablet 81 mg PO DAILY Primary Care Provider: Chavez Martinez Referrals: Chavez Martinez MD [Primary Care Provider] - Disposition Disposition: Home, Self Care Discharge Date/Time: 12/28/21 08:46
== END 2021-12-28 08:46 | disposition home or self-care (01) ==
PROVIDERS: Emergency Provider Student in an Organized Health Care Education/Training Program; PCP Family Medicine; Visit Provider Student in an Organized Health Care Education/Training Program
DX: M25.571 Pain in right ankle and joints of right foot (principal); I25.10 Atherosclerotic heart disease of native coronary artery without angina pectoris; Z87.891 Personal history of nicotine dependence; E78.00 Pure hypercholesterolemia, unspecified; I10 Essential (primary) hypertension; Z86.718 Personal history of other venous thrombosis and embolism
CPT/HCPCS: 73610; 99283

== ENCOUNTER 2022-01-04 08:34 | Emergency (ER) | payer MEDICARE, SELFPAY ==
[2022-01-04 08:36] VITALS: BP 135/83; PULSE 101; RESP 16; TEMP 36.5; O2SAT 94; BMI 27.2
--- NOTE | 2022-01-04 08:51 | ED.VIS.LOWEX ---
HPI History of Present Illness HPI Narrative: Patient presents with right ankle pain and swelling that occurred 1 week ago. Patient was seen here at that time and diagnosed with an ankle sprain. Patient states the swelling has been persistent. Patient states the pain has been persistent. Patient states it is worse with weightbearing. Patient states he takes half a tramadol tablet at nighttime which helps him sleep and helps with the pain. Patient denies any paresthesias or weakness. Patient denies any new injuries. Chief Complaint: Lower Extremity Injury Informant: patient Occured/Mechanism Mechanism/Context: Yes fall Onset/Context/Timing Onset: Weeks (1) Timing: Continuous Quality of Pain: Aching Location: Right ankle Worsened by: Weightbearing Relieved by: Tramadol Associated Symptoms Associated Symptoms: Negative for Parasthesia, Weakness or Loss of Funtion PFSH PFS Medical History Alcohol use Arthritis Back pain Cardiology follow-up encounter DVT (deep venous thrombosis) Former smoker Gastric reflux High cholesterol History of edema History of pain when walking History of stress test Hx of coronary artery disease Hypertension Injury of back Low iron NSVT (nonsustained ventricular tachycardia) Prostate disease Ventricular tachycardia Vertigo Wears dentures Wears glasses Home Medications lisinopril 40 mg tablet 40 mg PO DAILY #30 tabs 09/13/17 [Rx Last Taken 03/17/21] cholecalciferol (vitamin D3) 50 mcg (2,000 unit) capsule (Vitamin D3) 2,000 unit PO DAILY 02/24/18 [History Last Taken Unknown] cyanocobalamin (vitamin B-12) 500 mcg tablet 1,000 mcg PO DAILY@0800 02/24/18 [History Last Taken Unknown] ferrous sulfate 325 mg (65 mg iron) tablet 325 mg PO QODAY 02/24/18 [History Last Taken Unknown] meclizine 25 mg chewable tablet (Travel Sickness (meclizine)) 25 mg PO PRN PRN Dizziness 02/24/18 [History Last Taken Unknown] nitroglycerin 400 mcg/spray translingual 0.4 mg sublingual PRN PRN Cardiac/Chest Pain 02/24/18 [History Last Taken Unknown] pantoprazole 40 mg tablet,delayed release 40 mg PO DAILY 02/24/18 [History Last Taken Unknown] rivaroxaban 10 mg tablet (Xarelto) 10 mg PO DAILY 02/24/18 [History Last Taken 12/12/21] verapamil 120 mg 24 hr capsule,extended release 120 mg PO DAILY 02/24/18 [History Last Taken Unknown] vitamin B complex (Balanced B-50 tablet) 1 ea PO DAILY 02/24/18 [History Last Taken Unknown] alfuzosin 10 mg tablet,extended release 24 hr 10 mg PO DAILY 03/11/21 [History Last Taken Unknown] ezetimibe 10 mg tablet 10 mg PO DAILY 03/11/21 [History Last Taken Unknown] latanoprost 0.005 % eye drops 1 drp EACH EYE QPM 03/11/21 [History Last Taken Unknown] sildenafil 50 mg tablet (Viagra) 50 mg PO DAILY PRN Erectile Dysfunction 03/11/21 [History Last Taken Unknown] aspirin 81 mg tablet 81 mg PO DAILY 12/15/21 [History Last Taken Unknown] Allergy/AdvReac Type Severity Reaction Status Date / Time tetracycline AdvReac Mild Nausea/Vom/ Verified 01/04/22 08:35 Diarrhea Surgical History History of cardiac catheterization History of vein stripping Hx of heart artery stent Hx of left cataract extraction Hx of rotator cuff surgery Social History Smoking Status: Former smoker ROS ROS ED Constitutional Constitutional ED: Denies chills or fever(s) Eyes Eyes: Denies blurry vision or change in vision ENT ENT ED: Denies rhinorrhea or sore throat Cardiovascular Cardiovascular: Denies chest pain or palpitations Respiratory/Chest Respiratory/Chest: Denies cough or dyspnea Gastrointestinal Gastrointestinal: Denies nausea or vomiting Genitourinary Genitourinary ED: Denies dysuria or hematuria Musculoskeletal Musculoskeletal: Reports back pain; Denies neck pain Integumentary Denies abscess or rash Neurologic Neurologic: Denies headache(s) or weakness Allergic/Immunologic Allergic/Immunologic ED: Denies mouth swelling or urticaria EXAM Physical Exam Const Vital Signs: 01/04/22 08:36 Temperature 97.7 F L Temperature Source Temporal Pulse Rate 101 H Respiratory Rate 16 Blood Pressure 135/83 H Blood Pressure Mean 100 Pulse Ox 94 Oxygen Delivery Method Room Air Positive well nourished General Appearance ED: NAD HEENT Reports moist mucous membranes Neck full ROM and supple Extremity Extremity Narrative: There is tenderness, edema, and ecchymosis over the right ankle and right foot. There is no bony crepitance or step-off. There is no obvious deformity. There is some mild tenderness over the base of the fifth metatarsal and lateral malleolus of the right ankle. There is no proximal fibular tenderness. Range of motion was slightly limited in all motions of the right ankle secondary to pain. There is no calf tenderness. Pedal pulses are equal bilaterally. Sensation was intact to light touch in all digits. Neuro oriented x3, CN's II-XII intact bilaterally, moves all extremities and no sensory deficits noted Sensorium / Orientation: alert Motor Exam: strength 5/5 throughout Psych mental status grossly normal Skin no wounds MDM MDM MDM Narrative Medical decision making narrative: X-rays of the right ankle were obtained. There are 3 views. On my interpretation, there is no acute fracture. There is no dislocation. There is no soft tissue swelling. Radiologist also interpreted the x-rays and agrees. X-rays of the right foot were obtained. There are [3] views. On my interpretation, there is no acute fracture. There is no dislocation. There is no soft tissue swelling. Radiologist also interpreted the x-rays and agrees. Patient was advised of his findings. Patient was instructed to continue using ice to the area. Patient was instructed to continue wearing his Aircast. Patient was instructed to follow-up with his primary care physician in 5 to 7 days. Patient understood and was agreeable with the plan. All questions were answered. Discharge Plan Triage Chief Complaint: Lower Extremity Injury ED Provider: Alberto Daniels Dx/Rx/DC Orders Clinical Impression: Right ankle sprain, Hypertension Instructions: ED Ankle Sprain (Adult) Prescriptions: No Action lisinopril 40 MG tablet 40 mg PO DAILY Qty: 30 0RF cyanocobalamin (vitamin B-12) 500 MCG tablet 1,000 mcg PO DAILY@0800 pantoprazole 40 MG tablet 40 mg PO DAILY ferrous sulfate 325 MG tablet 325 mg PO QODAY nitroglycerin 0.4 MG bottle 0.4 mg sublingual PRN PRN (Reason: Cardiac/Chest Pain) vitamin B complex [Balanced B-50] 1 EACH tablet 1 ea PO DAILY verapamil 120 MG capsule,ext rel. pellets 24 hr 120 mg PO DAILY meclizine [Travel Sickness (meclizine)] 25 MG tablet,chewable 25 mg PO PRN PRN (Reason: Dizziness) cholecalciferol (vitamin D3) [Vitamin D3] 2,000 UNIT capsule 2,000 unit PO DAILY Xarelto 10 MG tablet 10 mg PO DAILY latanoprost 0.005 % Drops 1 drp EACH EYE QPM sildenafil [Viagra] 50 mg Tablet 50 mg PO DAILY PRN (Reason: Erectile Dysfunction) ezetimibe 10 mg Tablet 10 mg PO DAILY alfuzosin 10 mg Tablet Extended Release 24 Hr 10 mg PO DAILY aspirin 81 mg Tablet 81 mg PO DAILY Primary Care Provider: Chavez Martinez Referrals: Chavez Martinez MD [Primary Care Provider] - 5-7 Days Disposition Disposition: Home, Self Care
--- NOTE | 2022-01-04 09:10 | RAD_ITS ---
STUDY: X-RAY - RIGHT ANKLE REASON FOR EXAM: Male, 71 years old. PAIN, AND BRUISING S/P FALL X1 WEEK AGO TECHNIQUE: 3 view(s) of the ankle. COMPARISON: None. FINDINGS: Normal visualized distal tibia and fibula. Normal medial and lateral malleoli. Normal tibiotalar articulation and ankle mortise. Normal visualized talus and calcaneus. Moderate-sized plantar calcaneal spur noted. The visualized subtalar, talonavicular, calcaneocuboid and tarsal articulations are normal. There is no demonstrated fracture. Mild soft tissue swelling is present on the lateral side of ankle joint. RAD/Ankle min 3 Views IMPRESSION: Mild lateral soft tissue swelling Electronically Signed: Dhruv Reyes MD at 11:59 EDT ,
--- NOTE | 2022-01-04 09:10 | RAD_ITS ---
STUDY: X-RAY - RIGHT FOOT CLINICAL: Male, 71 years old. PAIN, AND BRUISING S/P FALL X1 WEEK AGO TECHNIQUE: 3 view(s) of the foot. COMPARISON: None. FINDINGS: Normal talus, calcaneus, and tarsal bones. Moderate-sized plantar calcaneal spur. Normal visualized subtalar, talonavicular, calcaneocuboid, tarsal and tarsometatarsal articulations. Normal metatarsi. Normal metatarsophalangeal joint of the great toe. Normal tibial and fibular sesamoid bones. Normal interphalangeal joint of the great toe. Normal phalanges of the great toe. Normal second through fifth metatarsophalangeal joints. Normal interphalangeal joints and phalanges of the lesser toes. The soft tissue structures are unremarkable. There is no demonstrated fracture. RAD/Foot min 3 Views IMPRESSION: Normal x-ray examination of the foot. Electronically Signed: Dhruv Reyes MD at 11:59 EDT ,
[2022-01-04 11:18] VITALS: RESP 20
== END 2022-01-04 11:23 | disposition home or self-care (01) ==
PROVIDERS: Emergency Provider Emergency Medicine; PCP Family Medicine; Visit Provider Emergency Medicine
DX: S93.401A Sprain of unspecified ligament of right ankle, initial encounter (principal); Z87.891 Personal history of nicotine dependence; W19.XXXA Unspecified fall, initial encounter; I25.10 Atherosclerotic heart disease of native coronary artery without angina pectoris; E78.00 Pure hypercholesterolemia, unspecified; I10 Essential (primary) hypertension
CPT/HCPCS: 73610; 73630; 99282

== ENCOUNTER 2022-04-20 08:52 | Day surgery (SDC) | payer MEDICARE, SELFPAY ==
[2022-04-20] VITALS (8 sets, daily range): BP systolic 113–155; BP diastolic 64–91; PULSE 67–78; RESP 16–18; TEMP 36.2–36.6; O2SAT 92–98; BMI 28.0
[2022-04-20] MEDS: Lactated Ringers 1,000 ML 15 ML IV (09:26)
--- NOTE | 2022-04-20 10:50 | RAD_ITS ---
PROCEDURE: Right L4-S1 medial branch nerve block. DATE OF EXAMINATION: 04/20/2022. INDICATION: Male, 72 years old. Chronic right back pain. FLUOROSCOPY TIME (if supplied): (9 seconds) minutes/seconds. 10 images were submitted. RAD/Lumbar Spine 2 or 3 Views IMPRESSION: Intraoperative imaging provided for right L4-S1 medial branch nerve block. Electronically Signed: Fernando Mcintosh MD at 13:34 EST ,
[2022-04-20] MEDS: Lidocaine 1% (5 ml sdv) 5 ML Vial (10:58)
[2022-04-20] MEDS: MethylPREDNISolone Acetate 80 MG/ML Vial (10:58)
--- NOTE | 2022-04-20 11:00 | PCM.OPRPT ---
Report of Operation Date of Procedure: 04/20/22 Description of Surgical Findings:: Pre-Operative Diagnosis: Lumbosacral spondylosis, lumbosacral degenerative disc disease, lumbar facet arthropathy Post-Operative Diagnosis: Lumbosacral spondylosis, lumbosacral degenerative disc disease, lumbar facet arthropathy PROCEDURE PERFORMED:?Right lumbar branch block at L4, L5, and S1. ANESTHESIA:? MAC. BLOOD LOSS:? Minimal. COMPLICATIONS:? None. DESCRIPTION OF PROCEDURE:? History and physical of today was reviewed.? Risks and benefits of the procedure were explained.? The patient understood and agreed to proceed.? Informed consent was obtained.? IV inserted per routine protocol.? The patient was taken to the operating room and placed in the prone position with a pillow positioned underneath the abdomen.? The lower back area was prepped and draped in a sterile fashion using iodine x3.? Under fluoroscopy guidance on AP view, the L4 through S1 vertebral bodies were visualized.? The skin and subcutaneous tissue was anesthetized with approximately 5 mL of 1% lidocaine using a 25-gauge regular needle.? Under direct visualization with fluoroscopy, at approximately 25-degree angle, starting on the right L3, ending on the right S1 passing through the L4 and L5, using a 22-gauge 3-1/2-inch spinal needle, the needle was advanced via the skin.? The tip of the needle was maneuvered and directed towards the superior medial gutter of the transverse process at the vicinity of the medial branch.? Once tip of the needle was in contact with the bone, the needle was pulled approximately 2 mm off the bone.? After negative aspiration for blood or CSF and confirmation on AP, oblique as well as lateral view, a total of 8 mL of preservative-free 0.25% Marcaine with 80 mg of Depo-Medrol was injected in divided doses between those 4 levels.? The needles were then removed intact.? The patient experienced no sign or symptoms of intrathecal or intravascular injection.? The patient experienced no paresthesia.? The procedure was completed without any apparent difficulty or any complications.? The patient appeared to tolerate it well. ASSESSMENT AND PLAN:? This is a 72-year-old male with lumbosacral spondylosis, lumbosacral degenerative disc disease, lumbar facet arthropathy status post bilateral lumbar medial branch block at L4-S1, patient will continue his current medications, patient will follow approximately 1 to 2 weeks for reevaluation.
== END 2022-04-20 12:20 | disposition home or self-care (01) ==
LOC: SDC 08:57 → AC 09:05
PROVIDERS: PCP Family Medicine; Referring Provider Anesthesiology Pain Medicine; Visit Provider Anesthesiology Pain Medicine
PROC: 3E0S3BZ Introduction of Anesthetic Agent into Epidural Space, Percutaneous Approach (ICD-10-PCS; CPT 62322; principal; 2022-04-20 10:45)
DX: M47.816 Spondylosis without myelopathy or radiculopathy, lumbar region (principal); M47.817 Spondylosis without myelopathy or radiculopathy, lumbosacral region; M51.37 Other intervertebral disc degeneration, lumbosacral region; K21.9 Gastro-esophageal reflux disease without esophagitis; E78.00 Pure hypercholesterolemia, unspecified; I10 Essential (primary) hypertension; E61.1 Iron deficiency
CPT/HCPCS: 64493; 64494; 64483; 72100; J7120

== ENCOUNTER 2022-07-06 07:56 | Day surgery (SDC) | payer MEDICARE, SELFPAY ==
--- NOTE | 2022-07-06 08:30 | RAD_ITS ---
PROCEDURE: Transforaminal right L3-L5 epidural injection. DATE OF EXAMINATION: 07/06/2022. INDICATION: Male, 72 years old. Chronic low back pain. FLUOROSCOPY TIME (if supplied): (15 seconds) minutes/seconds. 4.63 mGy. 3 images were submitted. RAD/Lumbar Spine 2 or 3 Views IMPRESSION: Intraoperative imaging provided for right L3-L5 transforaminal epidural injection. Electronically Signed: Fernando Mcintosh MD at 8:35 EST ,
[2022-07-06 08:32] VITALS: BP 154/100; PULSE 89; RESP 16; TEMP 37; O2SAT 97; BMI 27.1
[2022-07-06] MEDS: Lactated Ringers 1,000 ML 15 ML IV (08:36)
[2022-07-06] MEDS: Lidocaine 1% (5 ml sdv) 5 ML Vial (09:52)
[2022-07-06] MEDS: MethylPREDNISolone Acetate 80 MG/ML Vial (09:56)
[2022-07-06 10:05] VITALS: BP 107/63; BP 154/99; PULSE 78; RESP 16; TEMP 37.1; O2SAT 95
[2022-07-06 10:10] VITALS: BP 106/78; BP 154/99; PULSE 75; RESP 16; O2SAT 97
[2022-07-06 10:15] VITALS: BP 129/83; BP 154/99; PULSE 70; RESP 16; O2SAT 94
--- NOTE | 2022-07-06 10:18 | PCM.OPRPT ---
Report of Operation Date of Procedure: 07/06/22 Description of Surgical Findings:: PREOPERATIVE DIAGNOSES: 1. Lumbosacral radiculopathy. 2. Lumbosacral degenerative disk disease. 3. Lumbosacral spinal stenosis. POSTOPERATIVE DIAGNOSES: 1. Lumbosacral radiculopathy. 2. Lumbosacral degenerative disk disease. 3. Lumbosacral spinal stenosis. PROCEDURE PERFORMED: Right-sided lumbar transforaminal epidural steroid injection, L3-4 and L4-5. ANESTHESIA: MAC. BLOOD LOSS: Minimal. COMPLICATIONS: None. DESCRIPTION OF PROCEDURE: History and physical of today was reviewed. Risks and benefits of the procedure were explained. The patient understood and agreed to proceed. Informed consent was obtained. IV inserted per routine protocol. The patient was taken to the operating room and placed in the prone position with a pillow positioned underneath the abdomen. The right side of his lower back was prepped and draped in a sterile fashion using iodine x3. Under fluoroscopy guidance on oblique view, the L3 through L5 vertebral bodies were visualized. The skin and subcutaneous tissue was anesthetized with approximately 5 mL of 1% lidocaine using a 25-gauge regular needle. Under direct visualization with fluoroscopy at approximately 35-degree angle, starting on the right L3, ending on the right L5, using a 22-gauge 5-inch spinal needle, the needle was advanced via the skin. The tip of the needle was maneuvered and directed towards the inferior and medial gutter of the transverse process at the superiormost aspect of the neural foramen. Once the tip of the needle was at the vicinity of the foramen, after negative aspiration for blood or CSF, a total of 1 mL of contrast was injected in divided doses between both levels to confirm correct placement of the needle as well as medial spread. The confirmation was obtained on AP as well as lateral view. After repeated negative aspiration and confirmation on AP as well as lateral view, a total of 6 mL of preservative-free 0.25% Marcaine with 80 mg of Depo-Medrol was injected in divided doses between both levels. The needles were then removed intact. The patient experienced no sign or symptoms of intrathecal or intravascular injection. The patient experienced no paresthesia. The procedure was completed without any apparent difficulty or any complications. The patient appeared to tolerate it well. ASSESSMENT AND PLAN: This is a 72-year-old male with lumbosacral radiculopathy, lumbosacral degenerative disk disease, and lumbosacral spinal stenosis, status post right-sided lumbar transforaminal epidural steroid injection at L3-4 and L4-5. The patient will continue his current medications. The patient will follow up in approximately 2 weeks for reevaluation.
[2022-07-06 10:20] VITALS: BP 129/74; BP 154/99; PULSE 73; RESP 16; TEMP 37; O2SAT 95
[2022-07-06 10:44] VITALS: BP 154/99
== END 2022-07-06 10:46 | disposition home or self-care (01) ==
LOC: SDC 07:57 → AC 07:58
PROVIDERS: PCP Family Medicine; Referring Provider Anesthesiology Pain Medicine; Visit Provider Anesthesiology Pain Medicine
PROC: 3E0S3BZ Introduction of Anesthetic Agent into Epidural Space, Percutaneous Approach (ICD-10-PCS; CPT 64484; principal; 2022-07-06 09:25)
DX: M48.07 Spinal stenosis, lumbosacral region (principal); M51.17 Intervertebral disc disorders with radiculopathy, lumbosacral region; Z79.01 Long term (current) use of anticoagulants; K21.9 Gastro-esophageal reflux disease without esophagitis; I10 Essential (primary) hypertension; E61.1 Iron deficiency; I25.10 Atherosclerotic heart disease of native coronary artery without angina pectoris; Z95.5 Presence of coronary angioplasty implant and graft
CPT/HCPCS: 64484; 64483; 72100; J7120

== ENCOUNTER 2022-08-13 10:00 | Outpatient (RCR) | payer MEDICARE, SELFPAY ==
--- NOTE | 2022-07-14 07:58 | HP.PTEVAL ---
Patient's Visit Information MARÍA ELENA ALAN is a 72 year old M referred to Physical Therapy by PADMINI Bear with a diagnosis of DISORDER OF SCARUM ,DDD ,LUMBAR STENOSIS ,LUMABR SPONDYLOSIS. Date of Evaluation: 07/14/22 Physical Therapist: Pepe Barrientos, PT, Cert MDT, OCS - Visit Plan Frequency: 2x /Week Duration: 4 Weeks Plan: PT INTERVETIONS HIP STRENGTHENING ,CORE STRENGTHENING ,FLEXABLITY HIP /BACK AND MODALTIES FOR PAIN - Subjective This 72 y/o male presents to physical therapy with back pain . Patient has low back pain many years has had received injections in past . Patient fell down stairs last year spraining ankle and suffered right back pain. Patient received injection last week. Patient eventually received. Pain described as ache in right GLUT to and anterior thigh.PT recommendation. Aggravating factors walking, stairs , walking up hills .Alleviating factors meds and injection. Bowel/bladder -. Coughing/sneezing-. Denies paresthesia/tingling-. Patient symptoms affects sleeping. Patient has not been working out. VOCATION: retired. SOCIAL: - Pain Right Back Pain Intensity (Out of 10): 4 Pain Intensity Range: 10 - Objective POSTURE: mild forward posture. GAIT: reciprocal pattern. PALAPTION: tender piriformis. SYMMTRIES: align. FLEXABILITY: hamstrings min tight ,piriformis tight. MMT: quads/hams 4/5 ,(peak force) hip flexion 8.9 ,hip abduction 2.3. LUMBAR ROM: flexion min loss ,extension min loss ,side glides WFL - Special Tests L/S Slump test left side: Negative L/S Slump test right side: Negative L/S Left Straight Leg Raise: Negative L/S Right Straight Leg Raise: Negative Lumbar Standing: Flexion - Mechanical Response: No effect Lumbar Standing: Flexion - Symptoms During Testing: Increases Lumbar Standing: Flexion - Symptoms After Testing: No better Lumbar Standing: Extension - Mechanical Response: No effect Lumbar Standing: Extension - Symptoms During Testing: No effect Lumbar Standing: Extension - Symptoms After Testing: No effect Lumbar Standing: Right Side Glides - Mechanical Response: No effect Lumbar Standing: Right Side [place] - Symptoms During Testing: No effect Lumbar Standing: Right Side [place] - Symptoms After Testing: No effect Lumbar Standing: Left Side [place] - Mechanical Response: No effect Lumbar Standing: Left Side [place] - Symptoms During Testing: No effect Lumbar Standing: Left Side [place] - Symptoms After Testing: No effect Lumbar Lying: Flexion - Mechanical Response: No effect Lumbar Lying: Flexion - Symptoms During Testing: No effect Lumbar Lying: Flexion - Symptoms After Testing: No effect R Hip Scour: Negative R Hip PAUL - Intraarticular Pathology: Negative R Hip Trendelenberg - Glut Medius: Negative R Hip Jaime - IT Band: Negative - Balance/Special Test Scores Oswestry Low Back Score: 19 - Goals Goal 1:: Patient to be I with HEP Goal Time Frame: 4-6 Weeks Goal 2:: Patient to demonstrate 50% improvement with less pain and function Goal Time Frame: 4-6 Weeks Goal 3:: Patient to improve peak force strength of hip by 5-10 to improve function Goal Time Frame: 4-6 Weeks Goal 4:: Patient improve lumbar ROM for function of recovery to tie shoes Goal Time Frame: 4-6 Weeks Goal 5:: Patient to improve back oswestry score by 5 points to improve function Goal Time Frame: 4-6 Weeks - Rehabilitation Potential Physical Therapy Diagnosis: This patient has lumbar pain posterior glut pain with weakness of hip ,pain with motion testing thus impairs function with walking ,stairs thus benefit from skilled PT - Anticipated Interventions Patient/Client Instruction: Educate patient on: Condition, Plan of Care For the Purpose of:: To decrease pain, To increase ROM, To improve muscle performance and motor function, To improve ability to perform ADL's, To increase tolerance to activity/condition/position, To improve ability of physical actions for home/community/work/leisure, To improve health of tissue, To decrease soft tissue restriction, To increase flexibility/ROM, To prevent re-injury Therapeutic Exercise to Include: Strength training, Balance training, Body mechanics, Postural training, Flexibilty training, Dynamic Lumbar Stabilization, Sandor Exercises For the Purpose of:: To decrease pain, To improve nutrient delivery to tissue, To improve muscle performance and motor function, To increase tolerance to activity/condition/position, To improve ability of physical actions for home/community/work/leisure, To improve health of tissue, To decrease soft tissue restriction, To increase flexibility/ROM, To prevent re-injury TENS: Yes IF ES: Yes Cryotherapy (ice pack, ice massage): Yes Thermo therapy (hot pack): Yes Ultrasound (thermal/non thermal): Yes For the Purpose of:: To decrease pain, To increase ROM, To improve muscle performance and motor function, To improve health of tissue, To decrease soft tissue restriction Thank you for the opportunity to evaluate your patient. For Medicare and Medicare HMO plans, please review the plan of care and approve it. It will need to be FAXED BACK to us at [phone] for Medicare purposes. For Medicare only, by signing this I certify the plan of care. Please let me know if there are questions or concerns regarding this plan of care. Physician Signature: Date:
--- NOTE | 2022-09-24 10:35 | HP.PTDCSUM ---
It has been my pleasure to treat MARÍA ELENA ALAN referred by PADMINI Bear, with the diagnosis of DISORDER OF SCARUM ,DDD ,LUMBAR STENOSIS ,LUMABR SPONDYLOSIS for a total of 9 visit(s). Discharge Date: 08/13/22 Please see the following information for a summary of their discharge status. Subjective: I think its getting better symptoms are intermittent Right Back Pain Intensity (Out of 10): 3 % Improvement: 70 Objective/Function: POSTURE: mild forward posture. GAIT: reciprocal pattern. LUMBAR ROM: flexion min loss ,extension min loss. MMT: QIADS/HAMS/HIP 4/5. LUMBAR ROM: flexion min ,extension min,side glide min Goal 1:: Patient to be I with HEP Goal Progress: Goal Met Goal 2:: Patient to demonstrate 50% improvement with less pain and function Goal Progress: Goal Met Goal 3:: Patient to improve peak force strength of hip by 5-10 to improve function Goal Progress: Goal Met Goal 4:: Patient improve lumbar ROM for function of recovery to tie shoes Goal Progress: Goal Met Goal 5:: Patient to improve back oswestry score by 5 points to improve function Plan: D/C TO HEP Discharge Comments: gym If there are questions or concerns regarding this patient's physical therapy, please feel free to call me at [phone]. Thank you for the referral of this patient. Sincerely, Pepe Barrientos, PT, Cert MDT, OCS Balance/Gait/Functional tests - Balance/Special Test Scores Oswestry Low Back Score: 7
== END 2022-08-13 19:00 | disposition home or self-care (01) ==
LOC: PT 10:00
PROVIDERS: PCP Family Medicine; Referring Provider Nurse Practitioner Family; Visit Provider Nurse Practitioner Family
DX: M53.3 Sacrococcygeal disorders, not elsewhere classified (principal); M46.96 Unspecified inflammatory spondylopathy, lumbar region; M51.37 Other intervertebral disc degeneration, lumbosacral region; M47.817 Spondylosis without myelopathy or radiculopathy, lumbosacral region; M48.07 Spinal stenosis, lumbosacral region; M54.17 Radiculopathy, lumbosacral region
CPT/HCPCS: 97110; 97162

== ENCOUNTER 2022-09-14 07:35 | Day surgery (SDC) | payer MEDICARE, SELFPAY ==
[2022-09-14] VITALS (7 sets, daily range): BP systolic 90–124; BP diastolic 70–76; PULSE 71–92; RESP 16–17; TEMP 36.4–36.8; O2SAT 95–98; BMI 28.2
[2022-09-14] MEDS: Lactated Ringers 1,000 ML 15 ML IV (08:09)
--- NOTE | 2022-09-14 09:00 | RAD_ITS ---
PROCEDURE: Right hip injection. DATE OF EXAMINATION: September 14, 2022 INDICATION: Male, 72 years old. Right hip pain. FLUOROSCOPY TIME (if supplied): (3.1 seconds) minutes/seconds. 0.46 mGy RAD/Fluoro Guided Needle Placement IMPRESSION: Intraoperative imaging provided for right hip injection. Electronically Signed: Fernando Mcintosh MD at 9:38 EDT ,
[2022-09-14] MEDS: Lidocaine 1% (5 ml sdv) 5 ML Vial (09:08)
[2022-09-14] MEDS: MethylPREDNISolone Acetate 80 MG/ML Vial (09:08)
--- NOTE | 2022-09-14 09:13 | PCM.OPRPT ---
Report of Operation Date of Procedure: 09/14/22 Description of Surgical Findings:: PREOPERATIVE DIAGNOSIS: Osteoarthritis of the right hip POSTOPERATIVE DIAGNOSIS: Osteoarthritis of the right hip PROCEDURE PERFORMED: Right hip intraarticular steroid injection under fluoroscopy guidance. ANESTHESIA: MAC. BLOOD LOSS: Minimal. COMPLICATIONS: None. DESCRIPTION OF PROCEDURE: History and physical of today was reviewed. Risks and benefits of the procedure were explained. The patient understood and agreed to proceed. Informed consent was obtained. IV inserted per routine protocol. The patient was taken to the operating room and placed in the supine position. The right hip area was prepped and draped in a sterile fashion using iodine x3. Under fluoroscopy guidance on AP view, the right hip joint was visualized. The skin and subcutaneous tissue was anesthetized with approximately 3 mL of 1% lidocaine using a 25-gauge regular needle approximately 3 cm cephalad to the right greater trochanter. Under direct visualization with fluoroscopy on an AP view, using a 22-gauge 5-inch spinal needle, the needle was advanced via the skin using the lateral approach. The tip of the needle was maneuvered and directed towards the superiormost aspect of the hip joint. Once the tip of the needle was at the vicinity of the joint, after negative aspiration for blood and positive aspiration of synovial fluid, a total of 1 mL of contrast was injected to confirm correct placement of the needle as well as halo spread around the hip joint. After repeated negative aspiration for blood and confirmation on AP as well as oblique view, a total of 10 mL of preservative-free 0.25% Marcaine with 80 mg of Depo-Medrol was injected easily. The needle was then removed intact. The patient experienced no sign or symptoms of intrathecal or intravascular injection. The patient experienced no paresthesia. The procedure was completed without any apparent difficulty or any complications. The patient appeared to tolerate it well. ASSESSMENT AND PLAN: This is a 72-year-old male with osteoarthritis of the right hip status post right hip intra-articular steroid injection under fluoroscopic guidance patient will continue his current medications, patient will follow approximately 2 weeks for reevaluation.
== END 2022-09-14 10:15 | disposition home or self-care (01) ==
LOC: SDC 07:46 → AC 07:47
PROVIDERS: PCP Family Medicine; Referring Provider Anesthesiology Pain Medicine; Visit Provider Anesthesiology Pain Medicine
PROC: 3E0U3GC Introduction of Other Therapeutic Substance into Joints, Percutaneous Approach (ICD-10-PCS; CPT 20610; principal; 2022-09-14 09:05)
DX: M16.11 Unilateral primary osteoarthritis, right hip (principal); Z86.718 Personal history of other venous thrombosis and embolism; I10 Essential (primary) hypertension; E61.1 Iron deficiency; E78.00 Pure hypercholesterolemia, unspecified; I25.10 Atherosclerotic heart disease of native coronary artery without angina pectoris; Z95.5 Presence of coronary angioplasty implant and graft
CPT/HCPCS: 20610; 01991; 76000; 77002; J7120

== ENCOUNTER 2023-04-05 09:53 | Day surgery (SDC) | payer MEDICARE, SELFPAY ==
[2023-04-05 10:10] VITALS: BP 133/87; PULSE 84; RESP 16; TEMP 36.3; O2SAT 97; BMI 27.1
[2023-04-05] MEDS: Lactated Ringers 1,000 ML 15 ML IV (10:15)
--- NOTE | 2023-04-05 10:48 | RAD_ITS ---
PROCEDURE: Right hip injection DATE OF EXAMINATION: 04/05/2023 INDICATION: Male, 73 years old. Right hip pain PHYSICIAN: Dr. Huynh FLUOROSCOPY TIME (if supplied): (4.3) seconds, 2 spot films, dose of 0.5 mgy RADIATION DOSAGE (If Supplied By Facility): CTDIvol = ( ) mGy, DLP = ( ) mGycm CONSENT: The risks, benefits and alternatives to the procedure were explained to the patient, and the patient agreed to the procedure and signed the consent. SEDATION: Local STERILE BARRIER TECHNIQUE: The following sterile barrier precautions were used during the procedure: hand hygiene; use of 2% chlorhexidine aseptic; use of a cap, mask, sterile gown, sterile gloves, sterile full body drape, and a large sterile sheet. PROCEDURE/TECHNIQUE: (All elements of maximal sterile barrier technique followed, including US elements as applicable) The risks, benefits, and alternatives to the procedure were explained to patient, and the patient agreed to the procedure and signed a consent form for the procedure. A timeout was performed to confirm the patient''s identity, the type of procedure, to be performed and the site of entry. Under fluoroscopic guidance, a 20-gauge spinal needle was advanced into the right hip capsule without difficulty. RAD/Fluoro Guided Needle Placement IMPRESSION: No radiographic evidence of complication during right hip injection Electronically Signed: Flavio Wiggins MD at 12:20 EST ,
[2023-04-05] MEDS: MethylPREDNISolone Acetate 80 MG/ML Vial (10:54)
--- NOTE | 2023-04-05 10:54 | OP.PCM_ITS ---
Report of Operation Date of Procedure: 04/05/23 Description of Surgical Findings:: PREOPERATIVE DIAGNOSIS: Osteoarthritis of the right hip POSTOPERATIVE DIAGNOSIS: Osteoarthritis of the right hip PROCEDURE PERFORMED: Right hip intraarticular steroid injection under fluoroscopy guidance. ANESTHESIA: local. BLOOD LOSS: Minimal. COMPLICATIONS: None. DESCRIPTION OF PROCEDURE: History and physical of today was reviewed. Risks an d benefits of the procedure were explained. The patient understood and agreed to proceed. Informed consent was obtained. IV inserted per routine protocol. The patient was taken to the operating room and placed in the supine position. The right hip area was prepped and draped in a sterile fashion using iodine x3. Under fluoroscopy guidance on AP view, the right hip joint was visualized. The skin and subcutaneous tissue was anesthetized with approximately 3 mL of 1% lidocaine using a 25-gauge regular needle approximately 3 cm cephalad to the right greater trochanter. Under direct visualization with fluoroscopy on an AP view, using a 22-gauge 5-inch spinal needle, the needle was advanced via the skin using the lateral approach. The tip of the needle was maneuvered and directed towards the superiormost aspect of the hip joint. Once the tip of the needle was at the vicinity of the joint, after negative aspiration for blood and positive aspiration of synovial fluid, a total of 1 mL of contrast was injected to confirm correct placement of the needle as well as halo spread around the hip joint. After repeated negative aspiration for blood and confirmation on AP as well as oblique view, a total of 10 mL of preservative-free 0.25% Marcaine with 80 mg of Depo-Medrol was injected easily. The needle was then removed intact. The patient experienced no sign or symptoms of intrathecal or intravascular injection. The patient experienced no paresthesia. The procedure was completed without any apparent difficulty or any complications. The patient appeared to tolerate it well. ASSESSMENT AND PLAN: This is a 73-year-old male with osteoarthritis of the right hip status post right hip intra-articular steroid injection under fluoroscopic guidance patient will continue his current medications, patient will follow approximately 2 weeks for reevaluation.
[2023-04-05] MEDS: Lidocaine 1% (5 ml sdv) 5 ML Vial (10:55)
== END 2023-04-05 11:38 | disposition home or self-care (01) ==
LOC: SDC 09:56 → AC 09:59
PROVIDERS: PCP Family Medicine; Referring Provider Anesthesiology Pain Medicine; Visit Provider Anesthesiology Pain Medicine
PROC: 3E0U3GC Introduction of Other Therapeutic Substance into Joints, Percutaneous Approach (ICD-10-PCS; CPT 20610; principal; 2023-04-05 11:25)
DX: M16.11 Unilateral primary osteoarthritis, right hip (principal)
CPT/HCPCS: 20610; 76000; 77002; J7120

== ENCOUNTER 2023-10-14 08:47 | Day surgery (SDC) | payer MEDICARE, SELFPAY ==
[2023-10-14] VITALS (10 sets, daily range): BP systolic 90–139; BP diastolic 56–95; PULSE 68–88; RESP 16; TEMP 36–36.6; O2SAT 86–97; BMI 27.3
[2023-10-14] MEDS: Lactated Ringers 1,000 ML 15 ML IV (09:20)
[2023-10-14] MEDS: Cefazolin 2 GM in 0.9% Normal Saline (100mL Bag) 100 ML IV (11:12)
[2023-10-14] MEDS: Epinephrine (1 mg/ml) 1 MG/ML VIAL (11:45)
[2023-10-14] MEDS: Bupivacaine Mpf 0.5% 30 ML VIAL (12:50)
--- NOTE | 2023-10-14 13:37 | PCM.OPRPT ---
Report of Operation Date of Procedure: 10/14/23 Description of Surgical Findings:: Preoperative diagnosis: 1. Right shoulder rotator cuff tear 2. Right shoulder subacromial impingement syndrome 3. Right shoulder biceps tendinosis 4. Right shoulder acromioclavicular joint osteoarthritis Postoperative diagnosis: 1. Right shoulder rotator cuff tear 2. Right shoulder subacromial impingement syndrome 3. Right shoulder biceps tendinosis 4. Right shoulder acromioclavicular joint osteoarthritis Procedure 1. Right shoulder arthroscopic rotator cuff repair 2. Right shoulder arthroscopic subacromial decompression 3. Right shoulder arthroscopic distal clavicle excision 4. Right shoulder arthroscopic subpectoral mini open biceps tenodesis Surgeon: Carloz Marc DO Water Softener Service Supervisor: Veronica Reynaga PA-C Anesthesia: General LMA with interscalene block Operations Forester: Maury Christopher CRNA Estimated blood loss: 5 cc IV fluids: Per anesthesia record Urine output: None recorded Packing/drains: None Implants: Arthrex fiber tack RC x 2, Arthrex 4.75 mm bio composite swivel lock anchor x 2, metallic biceps button x 1 Preoperative indications: This is a active 73year-old male seen in the outpatient setting with acute onset right shoulder pain. He had profound weakness in his supraspinatus. MRI demonstrated a full-thickness retracted tear of the supraspinatus. I recommend surgical intervention in the form of right shoulder arthroscopic rotator cuff repair, subacromial decompression. Patient also had evidence of a chronic SLAP tear and biceps tenodesis was recommended, as well as AC joint arthritis and distal clavicle excision was recommended as well. Informed consent was obtained in the outpatient setting. Risks, benefits, terms the procedure reviewed with the patient at length and he agreed to proceed. Risk included but were not limited to bleeding, infection, loss of life or limb, need for additional surgery, persistent pain, nonhealing tendon or wounds, stiffness, neurovascular injury, DVT or PE. Patient expressed understanding of these risks and wished to proceed with surgery. Description of procedure: Patient was identified in preoperative holding area by name, medical record number, and date of . The operative extremity was marked. All questions were answered to the patient's satisfaction. An interscalene block was administered by anesthesia prior to the procedure. Patient was then brought to the operative suite at time of his procedure. He was positioned supine a sterile operating table. General anesthesia was induced and LMA was placed. Patient was then placed in lateral decubitus position with the right side up. A beanbag was used to hold the patient in the lateral decubitus position. An axillary roll was placed. Pillows were placed beneath and between his legs to for any bony prominences. We prepped and draped the right upper extremity in normal, sterile orthopedic fashion. The operative extremity was placed in traction utilizing arthroscopic bedroom with 15 pounds of tension applied to the operative extremity throughout the arthroscopic portion of the case. We performed a timeout with all parties in attendance in agreement with the side, site, and operation be performed. No concerns were voiced and we elected to proceed with surgery. 2 g Ancef was administered IV prior to incision by anesthesia staff. I first established a standard posterior portal 2 fingerbreadths inferior medial to the posterior lateral border of the scapular spine. Blunt tipped trocar and arthroscopic cannula was introduced into the glenohumeral joint. Joint was inflated with normal saline with epinephrine. Arthroscope was then introduced. Diagnostic arthroscopy was commenced. Full-thickness tearing with exposed sutures were noted at the supraspinatus with a bare footprint. Biceps tendinosis was noted as well as medial instability. Standard interval portal was then established with an 11 blade scalpel. Subscapularis was unremarkable. Glenohumeral cartilage was pristine. Biceps tenotomy was performed with arthroscopic cautery. Biceps labral junction was then debrided after the tendon retracted into the groove. The articular side of the supraspinatus was then debrided with the radial resector. No loose bodies were identified. I then turned my attention to the subacromial space. Arthroscopic instruments were removed. I reentered the shoulder in the subacromial space with blunt tipped trocar. Standard lateral portal was established with an 11 blade scalpel. Passport was placed for suture management during rotator cuff repair. I then skeletonized the undersurface of the acromion. A prominent downsloping spur from the anterior lateral surface of the acromion was identified. Acromioplasty was performed with the arthroscopic bur removing the spur. I then exposed the supraspinatus footprint with the cautery device. The footprint was lightly decorticated with a bur. Bursal side of the tendon tissue was debrided with a radial resector. I then proceeded with double row fixation. Via percutaneous portal, 2 fiber tack RC anchors were placed for medial row. Sutures were retrieved out the anterior portal. I then sequentially passed each limb of suture from the anchors. A total of 4 suture strands were placed through the supraspinatus tendon tissue near the musculotendinous junction. A single limb of each suture was then retrieved at the lateral portal and passed through the eyelet of a swivel lock anchor. Lateral row pilot captain holes were established with the vendor supplied punch. I then completed our lateral row with fixation with tensioning of the sutures and placed in the swivel lock anchor with excellent cortical purchase. Excellent compression and reapproximation of the supraspinatus to his [place] footprint was achieved. I then turned my attention to the AC joint. The joint capsule was opened along the inferior and anterior aspects. Distal clavicle excision was then performed with the arthroscopic bur removing approximately 8 mm distal clavicle in standard fashion. The superior and posterior portions of the joint capsule were left intact. I then thoroughly lavaged the subacromial space. Arthroscopic instruments were removed. Portal sites were closed in standard fashion with a [id number] 3-0 nylon suture. I then turned my attention to the biceps tenodesis site. An oblique incision was made at the inferior border of the pectoralis major tendon. I bluntly dissected down to level of fascia. Fascia was then opened. The pectoralis tendon was retracted laterally and the short head of biceps muscle belly was retracted medially. Long head biceps tendon was then retrieved out of the wound. Tendinosis was noted. Whipstitch was performed with a #2 FiberWire at the musculotendinous junction. The intercalary portion of the tendon was excised. I then remove periosteum in the subpectoral region of the humerus. I drilled unicortically. Sutures were passed alternating through a biceps button. Button was then placed through our drill hole and deployed within the intramedullary canal of the humerus. Sutures were tensioned and tied. Wound was copiously irrigated with normal saline solution. Dermis was reapproximated buried 3-0 Vicryl suture. Skin was finally reapproximated with subcuticular 4-0 Monocryl and Dermabond. Bulky sterile compression dressing was applied. Patient was placed in UltraSling. He tolerated the procedure well without apparent complication. He was safely awoken the operative suite and extubated. He was transferred to his gurney and subsequently to PACU in stable condition. Need for skilled assistant professor of forestry: Veroinca Reynaga PA-C was critical to the outcome of the case. During the course of the procedure the physician assistant professor of forestry played a vital role. Her intimate knowledge of my steps in the procedure aided in safe and expedient completion of the procedure. The PA played a vital role in positioning particularly in obtaining the appropriate positioning. The PA was also vital in the retraction of soft tissues during the exposure and protecting vital structures. The PA was also vital and obtaining tendon reduction and assisting with hardware placement. She also played a vital role in closure and sling application with my direct supervision. Post Operative Plan: Weightbearing: Nonweightbearing right upper extremity, okay for pendulums. Range of motion of wrist elbow and hand as tolerated. Antibiotics: 2 g Ancef IV prior to incision DVT Prophylaxis: Aspirin enteric-coated 81 mg twice daily starting tomorrow Gibosn: None Dressing: Maintain dressing x 2 days then ok to shower X-Rays: 2 weeks postop in the office Pain Medication: Oxycodone Rx upon discharge Follow-up: 2 weeks post-operatively with me in the office
== END 2023-10-14 15:38 | disposition home or self-care (01) ==
LOC: SDC 08:52 → AC 08:52
PROVIDERS: PCP Family Medicine; Referring Provider Student in an Organized Health Care Education/Training Program; Visit Provider Student in an Organized Health Care Education/Training Program
PROC: (CPT 29827; principal; 2023-10-14 10:50)
DX: S46.011A Strain of muscle(s) and tendon(s) of the rotator cuff of right shoulder, initial encounter (principal); M19.011 Primary osteoarthritis, right shoulder; M75.41 Impingement syndrome of right shoulder; I25.10 Atherosclerotic heart disease of native coronary artery without angina pectoris; I10 Essential (primary) hypertension; K21.9 Gastro-esophageal reflux disease without esophagitis; E78.00 Pure hypercholesterolemia, unspecified; Z79.82 Long term (current) use of aspirin; Z79.899 Other long term (current) drug therapy; Z79.01 Long term (current) use of anticoagulants; W19.XXXA Unspecified fall, initial encounter; Z86.718 Personal history of other venous thrombosis and embolism
CPT/HCPCS: 29827; 29826; 29824; 23430; 64415; C1713; J2405